=== PATIENT | female | born 1985 | race Caucasian/White ===

== ENCOUNTER 2023-09-25 12:58 | Emergency (ER) | payer BC, SELFPAY ==
[2023-09-25] VITALS (15 sets, daily range): BP systolic 113–145; BP diastolic 77–93; PULSE 75–131; RESP 11–26; TEMP 36.8; O2SAT 94–100; BMI 41.9
--- NOTE | 2023-09-25 13:30 | XR_ITS ---
The [address] [address] Patient Name: DOMI LOU MRN: [id number] date: 1985 Sex: F Assigned Patient Location: ER Current Patient Location: ER Accession/Order Number: [id number] Exam Date: 09/25/2023 13:35 Report Date: 09/25/2023 13:53 At the request of: CHAD CONDE Procedure: XR chest 1V EXAM: XR chest 1V at 1335 hours HISTORY: pain and shortness of breath with sudden onset today COMPARISON: None. TECHNIQUE: AP upright portable chest x-ray FINDINGS: The heart is not enlarged and the vasculature is not distended. No acute infiltrate, effusion or pneumothorax is identified. The osseous structures are grossly intact. XR/XR chest 1V IMPRESSION: No acute infiltrate or evidence of cardiac decompensation. Direct comparison with a previous study may be helpful in determining the chronicity of these findings. Electronically authenticated by: ALETHEA LAM Date: 09/25/2023 13:53
--- NOTE | 2023-09-25 13:32 | ECG_ITS ---
The [facility] Test Date: 2023-09-25 Pat Name: DOMI LOU Department: Room: - Gender: Female [employer]: : 1985 Requested By: [id number] Order Number: [id number] Reading MD: RITU LOPEZ Measurements Intervals Crocker Rate: 102 P: 72 MN: 170 QRS: 78 QRSD: 90 T: -44 QT: 280 QTc: 338 Interpretive Statements 1120 Sinus tachycardia [address] depression 4364 Twave abnormality, possible anterolateral ischemia 4664 Twave abnormality, possible inferior ischemia 8305 Short QTc interval 9150 abnormal ECG No previous ECG available for comparison Electronically Signed On 09-30-2023 6:42:22 EST by RITU LOPEZ
[2023-09-25 14:02] LABS: Alanine Aminotransferase 21 U/L (14-59); Albumin Globulin Ratio 0.8; Albumin Level 3.7 g/dL (3.4-5.0); Alkaline Phosphatase 69 U/L (46-116); Anion Gap 12.4; Aspartate Amino Transferase 16 U/L (15-37); BUN Creatinine Ratio 10.5; Bilirubin Total 0.3 mg/dL (0.2-1.0); Calcium 10.2 mg/dL (8.5-10.1); Carbon Dioxide 23.8 mmol/L (21.0-32.0); Chloride 101 mmol/L (98-107); Estimated GFR (African America >60 (>=60); Estimated GFR (Non-African Ame >60 (>=60); Globulin 4.5 g/dL; Glucose 138 mg/dL (74-106); Potassium 3.2 mmol/L (3.5-5.1); Sodium 134 mmol/L (136-145); Total Protein 8.2 g/dL (6.4-8.2); Troponin I High Sensitivity 50.8 pg/mL (4.0-51.3)
[2023-09-25 14:08] LABS: D Dimer <0.19 mg/L FEU (<=0.59)
[2023-09-25 14:18] LABS: Basophils Percent Auto 0.3 % (0.2-2.0); Eosinophils Percent Auto 0.4 % (0.9-7.0); Hematocrit 43.8 % (36.0-48.0); Hemoglobin 14.6 g/dL (12.0-16.0); Immature Granulocytes Abs Auto 0.04 10^3/uL (0.00-0.03); Immature Granulocytes Pct Auto 0.4 % (0.0-0.5); Lymphocytes Absolute Auto 2.9 10^3/uL (1.2-3.8); Lymphocytes Percent Auto 27.5 % (20.5-60.0); Mean Corpuscular HGB Conc 33.3 g/dL (29.9-35.2); Mean Corpuscular Hemoglobin 30.5 pg (26.7-34.0); Mean Corpuscular Volume 91.6 fL (81.0-99.0); Mean Platelet Volume 11.6 fL (9.5-13.5); Monocytes Absolute Auto 0.7 10^3/uL (0.3-0.8); Monocytes Percent Auto 6.3 % (1.7-12.0); Neutrophils Percent Auto 65.1 % (43.0-75.0); Platelet Count 257 10^3/uL (150-450); Red Blood Count 4.78 10^6/uL (4.20-5.40); Red Cell Distribution Width 13.1 % (11.0-15.0); White Blood Count 10.7 10^3/uL (4.0-11.0)
[2023-09-25 15:46] LABS: Troponin I High Sensitivity 51.9 pg/mL (4.0-51.3)
--- NOTE | 2023-09-25 15:52 | ED_ITS ---
HPI - Chest Pain General Chief Complaint: Chest Pain Stated Complaint: CHEST PAIN Time Seen by Provider: 09/25/23 13:30 Source: patient Mode of arrival: walk-in Limitations: no limitations History of Present Illness HPI narrative: patient here complaining of chest pain. It's in the upper right pectoral area. It was self-limited and lasted a short time. It did not radiate to the neck jaw or arms. There is no tearing or ripping sensation. She did not have nausea vomiting or diaphoresis. She's not had previous cardiovascular events. Her risk profile is negative for cholesterol problems diabetes illicit drug use previous coronary disease family history is all negative. She had a wellness physical done recently and it was normal. She is not had Covid or any influenza viruses recently. She does not have any ongoing discomfort at this time. She did not describe it as a heartburn or indigestion type symptoms. She's not had any swelling of her legs she's not had previous deep vein thrombosis or pulmonary embolism, frankly she is quite healthy. She did state that when she was very very young the physician told her she might have mitral valve prolapse the subsequent examinations have refuted that and she's been doing very well with no palpitations no dyspnea with exertion and no easy fatigability. Related Data Home Medications Medication Instructions Recorded Confirmed No Known Home Medications 09/25/23 09/25/23 Allergies Allergy/AdvReac Type Severity Reaction Status Date / Time No Known Drug Allergies Allergy Verified 09/25/23 13:05 [facility] Social History Smoking status: Never smoker Exam Narrative Exam Narrative: well-hydrated well-nourished female appears in no distress her vital signs are stable pulse oximetry respirator rate and pulse are normal. Twelve-lead EKG was done as noted below. Overall examination she does not have any scleral icterus or evidence of anemia. No facial swelling or upper airways normal. She has no carotid bruit. Her examination lungs are clear with no wheezes rales or rhonchi. Heart sounds are normal in all listening posts with no clicks rubs or gallops or murmur.she has no abdominal pain. Her legs do not show evidence for colitis edema swelling or perfusion ischemia. neurological examination is normal with no neurological complaints. Constitutional Vital Signs, click to edit/add: Last Vital Signs Temp 98.3 F 09/25/23 13:05 Pulse 80 09/25/23 14:50 Resp 13 09/25/23 14:31 BP 113/79 09/25/23 14:45 Pulse Ox 97 09/25/23 14:50 Course Vital Signs Vital signs: Vital Signs Temperature 98.3 F 09/25/23 13:05 Pulse Rate 131 H 09/25/23 13:05 Respiratory Rate 20 09/25/23 13:05 Blood Pressure 145/93 H 09/25/23 13:05 Pulse Oximetry 98 09/25/23 13:05 Temperature 98.3 F 09/25/23 13:05 Pulse Rate 80 09/25/23 14:50 Respiratory Rate 13 09/25/23 14:31 Blood Pressure 113/79 09/25/23 14:45 Pulse Oximetry 97 09/25/23 14:50 MDM - Chest Pain MDM Narrative Medical decision making narrative: patient's EKG shows T-wave abnormality over the inferior lateral leads. She has not had an EKG previously so we have no baseline to compare to. She does not have any ST segment elevation or arrhythmia. Her troponin is borderline upper normal so was repeated and two hours at one up fractionally. With her clinical history very unlikely representing of any type of underlying coronary disease problem and with her troponin essentially within the normal parameters I believe she can follow-up with a primary care doctor. 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 If her primary care Doctor cannot arrange that she can call me on Saturday and I will help facilitate that. Lab Data Labs: Lab Results 09/25/23 09/25/23 Range/Units 13:16 15:11 WBC 10.7 (4.0-11.0) 10^3/uL RBC 4.78 (4.20-5.40) 10^6/uL Hgb 14.6 (12.0-16.0) g/dL Hct 43.8 (36.0-48.0) % MCV 91.6 (81.0-99.0) fL MCH 30.5 (26.7-34.0) pg MCHC 33.3 (29.9-35.2) g/dL RDW 13.1 (11.0-15.0) % Plt Count 257 (150-450) 10^3/uL MPV 11.6 (9.5-13.5) fL Neut % (Auto) 65.1 (43.0-75.0) % Lymph % (Auto) 27.5 (20.5-60.0) % [place]wood % (Auto) 6.3 (1.7-12.0) % Eos % (Auto) 0.4 L (0.9-7.0) % Baso % (Auto) 0.3 (0.2-2.0) % Neut # (Auto) 7.0 H (1.4-6.5) 10^3/uL Lymph # (Auto) 2.9 (1.2-3.8) 10^3/uL Redwood # (Auto) 0.7 (0.3-0.8) 10^3/uL Eos # (Auto) 0.0 (0.0-0.7) 10^3/uL Baso # (Auto) 0.0 (0.0-0.1) 10^3/uL Abs Immat Gran (auto) 0.04 H (0.00-0.03) 10^3/uL Imm/Tot Granulo (auto) 0.4 (0.0-0.5) % D-Dimer <0.19 (<=0.59) mg/L FEU Sodium 134 L (136-145) mmol/L Potassium 3.2 L (3.5-5.1) mmol/L Chloride 101 (98-107) mmol/L Carbon Dioxide 23.8 (21.0-32.0) mmol/L Anion Gap 12.4 BUN 10.0 (7.0-18.0) mg/dL Creatinine 0.95 (0.55-1.02) mg/dL Est GFR ( Amer) >60 (>=60) Est GFR (Non-Af Amer) >60 (>=60) BUN/Creatinine Ratio 10.5 Glucose 138 H (74-106) mg/dL Calcium 10.2 H (8.5-10.1) mg/dL Total Bilirubin 0.3 (0.2-1.0) mg/dL AST 16 (15-37) U/L ALT 21 (14-59) U/L Alkaline Phosphatase 69 (46-116) U/L Troponin I High Sens 50.8 51.9 H* (4.0-51.3) pg/mL Total Protein 8.2 (6.4-8.2) g/dL Albumin 3.7 (3.4-5.0) g/dL Globulin 4.5 g/dL Albumin/Globulin Ratio 0.8 Heart Score History: Slightly/Non-Suspicious ECG: Sign. ST Depression Age: <45 years Risk Factors: No Risk Factors Troponin: <3X Normal Limit Total Heart Score Recommendations & Risks:: 3 Discharge Plan Discharge Chief Complaint: Chest Pain Clinical Impression: Atypical chest pain Patient Disposition: Home, Self-Care Time of Disposition Decision: 15:57 Prescriptions / Home Meds: No Action No Known Home Medications Additional Instructions: take a copy of her EKG and lab tests. Consider cardiology referral from your primary care practitioner or call me Saturday Stand Alone Forms: Portal Instructions Referrals: REY PERDOMO [Primary Care Provider] - 1 week
== END 2023-09-25 16:15 | disposition home or self-care (01) ==
PROVIDERS: Emergency Provider Emergency Medicine Emergency Medical Services; PCP Family Medicine
DX: R07.89 Other chest pain (principal)
CPT/HCPCS: 36415; 71045; 80053; 84484; 85025; 85378; 93005; 99285

== ENCOUNTER 2024-05-09 07:23 | Outpatient (OUT) | payer BC, SELFPAY ==
--- OUTSIDE RECORDS SUMMARY | 2024-05-09 07:27 | XMS_ITS | CCD ---
Author Organization [facility] Care Team Providers Care Director Wholesale Name Role Phone IRAJ WHITE Unavailable Unavail able IRAJ WHITE Unavailable Unavail able KEYA BLACKMON Unavailable Unavailable LOBITO DODGE Unavailable Unavailabl e VERKEYA CARNEY Unavailable Unavailable IRAJ WHITE Unavailable Unavail able IRAJ WHITE Unavailable Unavail able KEYA BLACKMON Unavailable Unavailable LOBITO DODGE Unavailable Unavailabl e VERKEYA CARNEY Unavailable Unavailable Keya Blackmon Primary Care Provider Keya Blackmon MD Primary Care Provider KEYA BLACKMON Referring Unavailable KEYA BLACKMON Primary Care Unavailable Joyce Stockton Unavailable Hoda Maynard Unavailable [phone] Medications Current Medications Medication Drug Class(es) Dates Sig (Normalized) Sig (Original) cephalexin 500 mg oral tablet (2 sources) Cephalosporin Antibacterial Start: 04-03-2023 take 1 tablet by mouth every eight hours Cephalexin 500 MG 1 tablet Orally Three times a day for 10 days Mar, Active Multi (1 source) Start: 05-04-2024 Multi Active PO May 04, 2024 12:00am Multi Complete (4 sources) Multi Complete Active Multiple Vitamins-Minerals (THERAPEUTIC MULTIVITAMIN-MINERALS) tablet (2 sources) take 1 tablet by mouth once daily Multiple Vitamins-Minerals (THERAPEUTIC MULTIVITAMIN-MINERALS) tablet Take 1 tablet by mouth daily 0 Active predniSONE 20 mg oral tablet (3 sources) Start : 03-27 take 1 tablet by mouth three times daily, then take 1 tablet by mouth twice daily, then take 1 tablet by mouth once daily, then take 0.5 tablet by mouth once daily predniSONE 20 MG 1 tablet Orally as directed for 8 days 1 tablet 3 times daily x2 days then 1 tablet twice daily x2 days then 1 tablet daily x2 days then 1/2 tablet daily x2 days Mar, Active Respiratory Therapy Supplies (NEBULIZER/TUBING/MOUTHPIEC E) KIT (1 source) Start : 11-17 Respiratory Therapy Supplies (NEBULIZER/TUBING/MOUTHPIEC E) KIT Indications: Shortness of breath , Wheezing , Cough in adult 1 kit by Does not apply route daily as needed (cough, wheezing) 1 kit 0 11/17/2020 Active triamcinolone acetonide 1 mg/ml topical cream (6 sources) Corticosteroid Start : 04-03 Triamcinolone Acetonide 0.1 % 1 application Externally Twice a day for 10 days Mar, Active Start: 03-27-2023 Kenalog-40 Mar, 40 mg Start: 03-27-2023 Completed/Discontinued Medications Medication Drug Class(es) Dates Sig (Normalized) Sig (Original) [id number] 200 actuat albuterol 0.09 mg/actuat metered dose inhaler (2 sources) beta2-Adrenergic Agonist Start: 05-29-2021 Start: 11-17-2020 albuterol (PRO VENTIL) (5 MG/ML) 0.5% nebulizer solution Indications: Shortness of breath , Wheezing , Cough in adult Take 1 mL by nebulization 4 times daily as needed for Wheezing 120 each 3 11/17/2020 Active Problems Active Problems Problem Classification Problem Date Documented Date Episodic/Chronic Allergic reactions (2 sources) Allergic contact dermatitis due to plants, except food Episodic Conditions associated with dizziness or vertigo (1 source) Dizziness and giddiness Episodic Heart valve disorders (2 sources) Mitral valve prolapse; Translations: [Nonrheumatic mitral (valve) prolapse] Onset: 04-08-2013 06-03-2017 Chronic Hypertension complicating ; childbirth and the puerperium (1 source) Hypertension complicating , childbirth and the puerperium; Translations: [Gestational hypertension] 06-11-2017 Chronic Menstrual disorders (1 source) Amenorrhea, unspecified; Translations: [Amenorrhea, unspecified] Onset: 09-20-2017 Chronic Nonspecific chest pain (1 source) Chest pain, unspecified Episodic Other screening for suspected conditions (not mental disorders or infectious disease) (9 sources) Abnormal electrocardiogram [ECG] [EKG]; Translations: [Other specified abnormal findings of blood chemistry] Episodic Skin and subcutaneous tissue infections (2 sources) Cellulitis of right upper limb; Translations: [Cellulitis of left upper limb] Episodic Past or Other Problems Problem Classification Problem Date Documented Da te Episodic/Chronic Early or threatened labor (2 sources) False labor, unspecified; Translations: [False labor, unspecified] Onset: 04-16-2017 Episodic Hypertension complicating ; childbirth and the puerperium (3 sources) Gestational [-induced] hypertension without significant proteinuria, third trimester; Translations: [-induced hypertension] Onset: 06-10-2017 Resolved: 11-17-2020 11-17-2020 Episodic Normal and/or delivery (3 sources) Encounter for supervision of normal first , third trimester; Translations: [Normal ] Onset: 05-28-2017 Resolved: 11-17-2020 06-11-2017 Episodic Results Test Name Value Interpretation Reference Range Facility Lipid Profileon 11-02-2022 Cholesterol [Mass/Vol] 213 mg/dL High <200 [facility] Comment on above: Result Comment: Cholesterol Guidelines: <200 Desirable 200-240 Borderline >240 Undesirable Performed By: #### Delgado FAST, GLUF #### [facility] [address] [place], [place] [id number] Wall Worker: Tesfaye Torres MD #### LIPR #### [facility] [employer] [address] [place] [address] [id number] Wall Worker: Serafin Collins MD Cholesterol in HDL [Mass/Vol] 73 mg/dL Normal >40 [facility] Comment on above: Result Comment: HDL Guidelines: <40 Undesirable 40-59 Borderline >59 Desirable Performed By: #### Delgado FAST, GLUF #### [facility] [address] [place], [place] [id number] Wall Worker: Tesfaye Torres MD #### LIPR #### [facility] [employer] [address] [place] [address] [id number] Wall Worker: Serafin Collins MD Cholesterol in LDL [Mass/Vol] 128 mg/dL Normal 0-130 [facility] Comment on above: Result Comment: LDL Guidelines: <100 Desirable 100-129 Near to/above Desirable 130-159 Borderline >159 Undesirable Direct (measured) LDL and calculated LDL are not interchangeable tests. Performed By: #### Z FAST, GLUF #### [facility] [address] [place], [place] [id number] Wall Worker: Tesfaye Torres MD #### LIPR #### [address] [address] [place], [place] [id number] Wall Worker: Serafin Collins MD Cholesterol.total/Ch olesterol in HDL [Mass ratio] 2.9 {ratio} Normal <5 [facility] Comment on above: Performed By: #### Delgado FAST, GLUF #### [facility] [address] [place], [place] [id number] Wall Worker: Tesfaye Torres MD #### LIPR #### [address] [place], [place] [id number] Wall Worker: Serafin Collins MD Triglyceride [Mass/Vol] 60 mg/dL Normal <150 [facility] Comment on above: Result Comment: Triglyceride Guidelines: <150 Desirable 150-199 Borderline 200-499 High >499 Very high Based on AHA Guidelines for fasting triglyceride, June 2012. Performed By: #### Delgado FAST, GLUF #### [facility] [address] [place], [place] [id number] Wall Worker: Tesfaye Torres MD #### LIPR #### [facility] [address] [place], [place] [id number] Wall Worker: Serafin Collins MD Glucose, Fastingon 3 Glucose [Mass/Vol] 97 mg/dL Normal 70-99 [facility] Comment on above: Performed By: #### Z FAST, GLUF #### [facility] [address] [place] [address] Wall Worker: Tesfaye Torres MD #### LIPR #### [employer] [address] [place] [address] Wall Worker: Serafin Collins MD Glucose [Mass/Vol] 97 mg/dL 70 - 99 mg/dL [facility] Lipid Panelon 11-01-2022 Cholesterol [Mass/Vol] 213 mg/dL High NINF - 200 mg/dL [facility] Comment on above: Cholesterol Guidelines: <200 Desirable 200-240 Borderline >240 Undesirable Cholesterol in HDL [Mass/Vol] 73 mg/dL 40 - PINF mg/dL [facility] Comment on above: HDL Guidelines: <40 Undesirable 40-59 Borderline >59 Desirable Cholesterol in LDL [Mass/Vol] 128 mg/dL 0 - 130 mg/dL [facility] Comment on above: LDL Guidelines: <100 Desirable 100-129 Near to/above Desirable 130-159 Borderline >159 Undesirable Direct (measured) LDL and calculated LDL are not interchangeable tests. Cholesterol.total/Ch olesterol in HDL [Mass ratio] 2.9 {ratio} NINF - 5 [facility] Interpretation and review of laboratory results Abnormal [facility] Triglyceride [Mass/Vol] 60 mg/dL NINF - 150 mg/dL [facility] Comment on above: Triglyceride Guidelines: <150 Desirable 150-199 Borderline 200-499 High >499 Very high Based on AHA Guidelines for fasting triglyceride, June 2012. [facility] Patient Fasting?on 3 Patient Fasting? YES [facility] Patient fasting?on 3 Patient fasting? 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 [place], [place] [address] Fax: SURGICAL PATHOLOGY CONSULTATIONPatient Name: [facility] Rec: [id number] Number: [id number]: 06/11/2017Received: 06/11/2017Reported: 06/13/2017 13:37-- Diagnosis --PLACENTA, THIRD TRIMESTER: - NO HISTOLOGIC ABNORMALITY.Demi Collins M.D.Electronically Signed Out [facility]/06/13/2017Clinical InformationOperative Findings: PLACENTASource of Specimen1: PLACENTA (PER CONTAINER)Gross Description YUMIKO SERRANO, PLACENTA Placenta with attached membranes andumbilical cord.UMBILICAL CORD Length: 30.0 cm Diameter: 1.0 cmTrue knots: NoNumber of vessels: 3Spiraling: NormalInsertion into surface: Paracentral, 5.2 cm from the nearestdisc marginMEMBRANESColor: [place]-osorio Meconium staining: No SURFACEColor: Saunders-blue and well vascularizedSubchorionic fibrin: Patchy and marginal (less than 5% of thedisc) MATERNAL SURFACECotyledons: -All present and intact: Yes-Focal lesions: Osorio, wedge-shaped measuring up to 1.5 cm involvingless than 10% of the otherwise unremarkable red-brown parenchyma.Placental size: 19.0 x 16.0 x 3.0 cmShape: CircularWeight: 407 gramsNumber of cassettes: 3cs tmMicroscopic DescriptionUmbilical cord: No abnormalityChorionic plate: No neutrophil infiltrateVillous maturation: AppropriateNucleated erythrocytes in Villous capillaries: Not increasedOther: Few microcalcifications; intervillous fibrindeposition Normal [facility] Urinalysis w/ Microon 2016 ----- Normal [facility] Comment on above: Performed By: #### U AMI ####[address] [place] [address] Acetaminophen mass conc TRACE Abnormal NEG [facility] Comment on above: Performed By: #### U AMIC ####[address] [place] [address] Bilirubin (direct) Negative Normal NEG [facility] Comment on above: Performed By: #### U AMIC ####[address] [place] [address] Hemoglobin mass conc (Bld) TRACE Abnormal NEG [facility] Comment on above: Performed By: #### U AMIC ####[address] [place] [address] Mucus Strands TRACE Abnormal NONE [facility] Comment on above: Result Comment: Perf ormed at [address] [place] [address] Performed By: #### U AMIC ####[address] [place] [address] Nitrite,Ur Negative Normal NEG [facility] Comment on above: Performed By: #### U AMIC ####[address] [place] [address] Turbidity CLEAR Normal CLEAR [facility] Comment on above: Performed By: #### U AMIC ####[address] [place] [address] Urine WBC's None Normal 0-5 [facility] Comment on above: Performed By: #### U AMIC ####[address] [place] [address] Urine, color YELLOW Normal YEL [facility] Comment on above: Performed By: #### U AMIC ####[address] [place] [address] Urine, epithelial cells in sediment 0 TO 2 Normal 0-25 [facility] Comment on above: Performed By: #### U AMIC ####[address] [place] [address] Urine, erythrocytes 0 TO 2 Normal 0-2 [facility] Comment on above: Performed By: #### U AMIC ####[address] [place] [address] Urine, glucose presence Negative Normal NEG [facility] Comment on above: Performed By: #### U AMIC ####[address] [place] [address] Urine, leukocyte esterase presence Negative Normal NEG [facility] Comment on above: Performed By: #### U AMIC ####[address] [place] [address] Urine, pH 6.0 [pH] Normal 5.0-9.0 [facility] Comment on above: Performed By: #### U AMIC ####[address] [place] [address] Urine, protein presence Negative Normal NEG [facility] Comment on above: Performed By: #### U AMIC ####[address] [place] [address] Urine, specific gravity 1.010 Normal 1.010-1.020 [facility] Comment on above: Performed By: #### U AMIC ####[address] [place] [address] Urobilinogen,Ur Normal Normal NORM [facility] Comment on above: Performed By: #### U AMIC ####[address] [place] [address] Comment NOT REPORTED Normal [facility] Comment on above: Performed By: #### U AMIC ####[address] [place] [address] Epithelial, Renal NOT REPORTED Normal 0 [facility] Comment on above: Performed By: #### U AMIC ####[address] [place] [address] Other Observations NOT REPORTED Normal NREQ [facility] Comment on above: Performed By: #### U AMIC ####[address] [place] [address] Trichomonas NOT REPORTED Normal NONE [facility] Comment on above: Performed By: #### U AMIC ####[address] [place] [address] Urine, amorphous sediment presence in sediment NOT REPORTED Normal NONE [facility] Comment on above: Performed By: #### U AMIC ####[address] [place] [address] Urine, bacteria in sediment NOT REPORTED Normal NONE [facility] Comment on above: Performed By: #### U AMIC ####[address] [place] [address] Urine, casts in sediment NOT REPORTED Normal [facility] Comment on above: Performed By: #### U AMIC ####[address] [place] [address] Urine, crystals in sediment NOT REPORTED Normal NONE [facility] Comment on above: Performed By: #### U AMIC ####[address] [place] [address] Urine, yeast presence in sediment NOT REPORTED Normal NONE [facility] Comment on above: Performed By: #### U AMIC ####[address] [place] [address] CBC with Diffon 06-10-2017 Abs. Basophil 0.00 k/uL Normal 0.0-0.2 [facility] Comment on above: Result Comment: Perf ormed at [address] [place] [address] Performed By: #### C DP ####[address] [place] [address] Abs.Neutrophil (Seg) 11.80 k/uL High 1.8-7.7 [facility] Comment on above: Performed By: #### C DP ####[address] [place] [address] Basophils/100 WBC Auto (Bld) 0 % Normal [facility] Comment on above: Performed By: #### C DP ####[address] [place] [address] Eosinophils 0.10 10*3/uL Normal 0.0-0.4 [facility] Comment on above: Performed By: #### C DP ####[address] [place] [address] Eosinophils/100 leukocytes 0 % Normal [facility] Comment on above: Performed By: #### C DP ####[address] [place] [address] Erythrocyte distribution width Auto Ratio (RBC) 13.3 % Normal 12.1-15.2 [facility] Comment on above: Performed By: #### C DP ####[address] [place] [address] Erythrocytes (RBC) 4.51 10*6/uL Normal 4.0-5.2 [facility] Comment on above: Performed By: #### C DP ####[address] [place] [address] Hematocrit (HCT) 40.7 % Normal 36-46 [facility] Comment on above: Performed By: #### C DP ####[address] [place] [address] Hemoglobin mass conc (Bld) 13.6 g/dL Normal 12.0-16.0 [facility] Comment on above: Performed By: #### C DP ####[address] [place] [address] Lymphocytes 2.20 10*3/uL Normal 1.0-4.8 [facility] Comment on above: Performed By: #### C DP ####[address] , [facility] Lymphocytes/100 leukocytes 15 % Normal [facility] Comment on above: Performed By: #### C DP ####[address] , [place] [address] MCH 30.2 pg Normal 26-34 [facility] Comment on above: Performed By: #### C DP ####[address] , [facility] MCHC mass conc (RBC) 33.4 g/dL Normal 31-37 [facility] Comment on above: Performed By: #### C DP ####[address] , [facility] MCV 90.2 fL Normal 80-100 [facility] Comment on above: Performed By: #### C DP ####[address] [place] [address] Monocytes 0.90 10*3/uL High 0.2-0.8 [facility] Comment on above: Performed By: #### C DP ####[address] , [facility] Monocytes/100 leukocytes 6 % Normal [facility] Comment on above: Performed By: #### C DP ####[address] , [facility] Neutrophil (Seg) 79 % Normal [facility] Comment on above: Performed By: #### C DP ####[address] , [facility] Platelet mean volume (PMV) 10.7 fL Normal 6.0-12.0 [facility] Comment on above: Performed By: #### C DP ####[address] [place] [address] Platelets 168 10*3/uL Normal 140-450 [facility] Comment on above: Performed By: #### C DP ####[address] [place] [address] WBC (Leukocytes) 15.0 10*3/uL High 3.5-11.0 [facility] Comment on above: Performed By: #### C DP ####[address] [place] [address] Auto Diff Performed NOT REPORTED Normal [facility] Comment on above: Performed By: #### C DP ####[address] [place] [address] Erythrocyte morphology NOT REPORTED Normal [facility] Comment on above: Performed By: #### C DP ####[address] [place] [address] Platelets NOT REPORTED Normal [facility] Comment on above: Performed By: #### C DP ####[address] [place] [address] WBC Morphology NOT REPORTED Normal [facility] Comment on above: Performed By: #### C DP ####[address] [place] [address] Comp Metabolic Profon 2016 Alanine aminotransferase (ALT) 16 U/L Normal 5-33 [facility] Comment on above: Performed By: #### U RI, CP, LD, REJEC ####[address] [place] [address] Aspartate aminotransferase (AST) 27 U/L Normal <32 [facility] Comment on above: Performed By: #### U RI, CP, LD, REJEC ####[address] [place] [address] Bilirubin Ql (U) <0.10 Low 0.3-1.2 [facility] Comment on above: Performed By: #### U RI, CP, LD, REJEC ####[address] [place] [address] Potassium molar conc 4.2 mmol/L Normal 3.7-5.3 [facility] Comment on above: Performed By: #### U RI, CP, LD, REJEC ####[address] , [facility] (cont.) Normal [facility] Comment on above: Result Comment: Aver age GFR for 30-39 years old: 107 mL/min/1.73sq mChronic Kidney Disease: <60 mL/min/1.73sq mKidney failure: <15 mL/min/1.73sq meGFR calculated using average adult body mass. Additional eGFR calculator available at:http://www.[employer]/multiple_crcl_2012.htm Performed By: #### U RI, CP, LD, REJEC ####[address] [place] [address] Albumin 3.3 g/dL Low 3.5-5.2 [facility] Comment on above: Performed By: #### U RI, CP, LD, REJEC ####[address] [place] [address] Albumin/Globulin Ratio 0.9 {ratio} Low 1.0-2.5 [facility] Comment on above: Performed By: #### U RI, CP, LD, REJEC ####[address] [place] [address] Alkaline Phos 89 U/L Normal 35-104 [facility] Comment on above: Performed By: #### U RI, CP, LD, REJEC ####[address] [place] [address] Anion gap 14 mmol/L Normal 9-17 [facility] Comment on above: Performed By: #### U RI, CP, LD, REJEC ####[address] [place] [address] BUN/CRE Ratio 15 Normal 9-20 [facility] Comment on above: Performed By: #### U RI, CP, LD, REJEC ####[address] [place] [address] Calcium 9.6 mg/dL Normal 8.6-10.4 [facility] Comment on above: Performed By: #### U RI, CP, LD, REJEC ####[address] [place] [address] Chloride 101 mmol/L Normal 98-107 [facility] Comment on above: Performed By: #### U RI, CP, LD, REJEC ####[address] [place] [address] CO2 19 mmol/L Low 20-31 [facility] Comment on above: Performed By: #### U RI, CP, LD, REJEC ####[address] [place] [address] Creatinine 0.68 mg/dL Normal 0.50-0.90 [facility] Comment on above: Performed By: #### U RI, CP, LD, REJEC ####[address] [place] [address] eGFR (non-black) mL/min/{1.73_m2} Normal >60 [facility] Comment on above: Performed By: #### U RI, CP, LD, REJEC ####[address] [place] [address] Glucose mass conc 85 mg/dL Normal 70-99 [facility] Comment on above: Performed By: #### U RI, CP, LD, REJEC ####[address] [place] [address] Protein 6.9 g/dL Normal 6.4-8.3 [facility] Comment on above: Performed By: #### U RI, CP, LD, REJEC ####[address] [place] [address] Sodium 134 mmol/L Low 135-144 [facility] Comment on above: Performed By: #### U RI, CP, LD, REJEC ####[address] [place] [address] Staging: Normal [facility] Comment on above: Result Comment: Stag e 1: Some kidney damage normal GFRStage 2: Mild kidney damage GFR 60-89Stage 3: Moderate kidney damage GFR 30-59Stage 4: Severe kidney damage GFR 15-29Stage 5: Severe kidney damage GFR <15ESRD - chronic treatment by dialysis or transplantPerformed at [address] [place] [address] Performed By: #### U RI, CP, LD, REJEC ####[address] [place] [address] Urea nitrogen 10 mg/dL Normal 6-20 [facility] Comment on above: Performed By: #### U RI, CP, LD, REJEC ####[address] [place] [address] Drug Scr, Abuse, Uron 2016 Amphetamine(s),Ur Negative Normal NEG [facility] Comment on above: Performed By: #### D AU ####[address] [place] [address] Barbiturate(s),Ur Negative Normal NEG [facility] Comment on above: Performed By: #### D AU ####[address] [place] [address] Base excess Negative Normal NEG [facility] Comment on above: Performed By: #### D AU ####[address] [place] [address] Benzodiazepine(s) Negative Normal NEG [facility] Comment on above: Performed By: #### D AU ####[address] [place] [address] Buprenorphrine, Ur Negative Normal NEG [facility] Comment on above: Result Comment: Perf ormed at [address] [place] [address] Performed By: #### D AU ####[address] [place] [address] Cannabinoid(s),Ur Negative Normal NEG [facility] Comment on above: Performed By: #### D AU ####[address] [place] [address] Methamphetamine, Ur Negative Normal NEG [facility] Comment on above: Performed By: #### D AU ####[address] [place] [address] Opiate(s), Ur Negative Normal NEG [facility] Comment on above: Performed By: #### D AU ####[address] [place] [address] Oxycodone, Urine Negative Normal NEG [facility] Comment on above: Performed By: #### D AU ####[address] [place] [address] Phencyclidine, Ur Negative Normal NEG [facility] Comment on above: Performed By: #### D AU ####[address] [place] [address] Propoxyphene,Urine Negative Normal NEG [facility] Comment on above: Performed By: #### D AU ####[address] [place] [address] Urine, methadone presence Negative Normal NEG [facility] Comment on above: Performed By: #### D AU ####[address] [place] [address] Urine, tricyclic antidepressants Negative Normal NEG [facility] Comment on above: Result Comment: Drug screen results are to be used for medical purposes only. All positive results are unconfirmed. Testing for employment or legal uses should be sent to a reference laboratory for confirmation. 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 [address] Performed By: #### U RI, CP, LD, REJEC ####[address] [place] [address] Specimen Rejectionon 017 Reason for rejection CLOTTED Normal [facility] Comment on above: Result Comment: Perf ormed at [address] [place] [address] Performed By: #### U RI, CP, LD, REJEC ####[address] [place] [address] Source of sample BLOOD Normal [facility] Comment on above: Performed By: #### U RI, CP, LD, REJEC ####[address] [place] [address] Test ordered CDP Normal [facility] Comment on above: Performed By: #### U RI, CP, LD, REJEC ####[address] [place] [address] ----- NOT REPORTED Normal [facility] Comment on above: Performed By: #### U RI, CP, LD, REJEC ####[address] [place] [address] Uric Acidon 06-10-2017 Urate 5.5 mg/dL Normal 2.4-5.7 [facility] Comment on above: Result Comment: Perf ormed at [address] [place] [address] Performed By: #### U RI, CP, LD, REJEC ####[address] [place] [address] Rule Out Grp.B Strepon 05-31 Rule Out Grp.B Strep Specimen Descriptio n .VAGINA Performed at [address] [place] [address] Special Requests NOT REPORTEDCulture NEGATIVE FOR GROUP B STREPTOCOCCI Performed at [address] [id number] ([phone] Report Status FINAL 05/31/2017 Normal [facility] Comment on above: Performed By: #### R OGBS ####[address] [phone] [place] [address] Vaginitis DNA Probeon 2016 Vaginitis DNA Probe Specimen Description .VAGINA Performed at [address] [place] [address] Special Requests NOT REPORTEDDirect Exam NEGATIVE for Kaylene sp. NEGATIVE for Gardnerella vaginalis NEGATIVE for Trichomonas vaginalis Method of testing is a DNA probe intended for detection and identification of Kaylene species, Gardnerella vaginalis, and Trichomonas vaginalis nucleic acid in vaginal fluid specimens from patients with symptoms of vaginitis/vaginosis. Performed at [address] [id number] ([phone] Report Status FINAL 05/28/2017 Normal [facility] Comment on above: Performed By: #### V AGDNA ####[address] [phone] [place] [address] Vital Signs Date Time Vital Sign Value Performing Clinician Facility 05-04-2024 15:28-0400 Body height 162.56 cm [facility] 05-04-2024 15:28-0400 Body mass index (BMI) [Ratio] 43.7 kg/m2 [facility] 05-04-2024 15:28-0400 Body weight 115.66 kg [facility] 05-04-2024 15:28-0400 Diastolic blood pressure 78 mm[Hg] [facility] 05-04-2024 15:28-0400 Heart rate 100 /min [facility] 05-04-2024 15:28-0400 SaO2% (BldA) [Mass fraction] 99 % [facility] 05-04-2024 15:28-0400 Systolic blood pressure 122 mm[Hg] [facility] 09-30-2023 09:00-0500 Body height 165.1 cm Hoda Maynard Other [facility] Other 09-30-2023 09:00-0500 Body mass index (BMI) [Ratio] 43.76 kg/m2 Hoda Maynard Other [facility] Other 09-30-2023 09:00-0500 Body weight 119.3 kg Hoda Maynard Other [facility] Other 09-30-2023 09:00-0500 Diastolic blood pressure 72 mm[Hg] Hoda Barbosaelliottpedritojason Other [facility] Other 09-30-2023 09:00-0500 SaO2% (BldA) [Mass fraction] 100 % Hoda Aleyda Other [facility] Other 09-30-2023 09:00-0500 Systolic blood pressure 140 mm[Hg] Hoda Aleyda Other [facility] Other 04-03-2023 08:30-0400 Body height 165.1 cm Hoda Aleyda Other [facility] Other 04-03-2023 08:30-0400 Body mass index (BMI) [Ratio] 42.76 kg/m2 Hoda Aleyda Other [facility] Other 04-03-2023 08:30-0400 Body weight 116.58 kg Hoda Aleyda Other [facility] Other 04-03-2023 08:30-0400 Diastolic blood pressure 70 mm[Hg] Hoda Aleyda Other [facility] Other 04-03-2023 08:30-0400 Systolic blood pressure 138 mm[Hg] Hoda Aleyda Other [facility] Other 03-27-2023 14:55-0400 Body height 165.1 cm Joyce Stockton Other [facility] Other 03-27-2023 14:55-0400 Body mass index (BMI) [Ratio] 42.46 kg/m2 Joyce Stockton Other [facility] Other 03-27-2023 14:55-0400 Body temperature 98.2 [degF] Joyce Stockton Other [facility] Other 03-27-2023 14:55-0400 Body weight 115.76 kg Joyce Stockton Other [facility] Other 03-27-2023 14:55-0400 Diastolic blood pressure 87 mm[Hg] Joyce Stockton Other [facility] Other 03-27-2023 14:55-0400 Respiratory rate 18 /min Joyce Stockton Other [facility] Other 03-27-2023 14:55-0400 SaO2% (BldA) [Mass fraction] 100 % Joyce Stockton Other [facility] Other 03-27-2023 14:55-0400 Systolic blood pressure 144 mm[Hg] Joyce Stockton Other [facility] Other Encounters Encounter Date Encounter Type Care Provider Facility Start: 05-04-2024 Patient encounter status [facility] Start: 05-04-2024 End: 05-04-2024 ambulatory [facility] Work Phone: Start: 05-04-2024 End: 05-04-2024 Encounter for general adult medical examination without abnormal findings [facility] Start: 05-04-2024 End: 05-04-2024 Patient encounter procedure [facility] Work Phone: Start: 09-30-2023 End: 01-15-2024 ambulatory Hoda Maynard Other [facility] Other Start: 09-30-2023 Office outpatient vi sit 15 minutes Hoda Aleyda [facility] Start: 04-03-2023 End: 04-03-2023 ambulatory Hoda Aleyda Other [facility] Other Start: 04-03-2023 Office outpatient ne w 20 minutes Hoda Aleyda [facility] Start: 04-03-2023 Telephone encounter Hoda Anastasiya [facility] Start: 03-27-2023 End: 03-27-2023 ambulatory Joyce Stockton Other [facility] Other Start: 03-27-2023 Office outpatient vi sit 15 minutes Joyce Stockton [facility] Start: 11-01-2022 End: 11-02-2022 [facility] Start: 11-01-2022 Encounter for genera l adult medical examination without abnormal findings [facility] Start: 11-01-2022 End: 11-01-2022 Patient encounter procedure Keya Blackmon MD Work Phone: [email or web address] Start: 11-01-2022 End: 11-01-2022 Subsequent hospital visit by physician Keya Blackmon MD Work Phone: [email or web address] Comment on above: Annual physical exam Start: 03-07-2020 End: 03-07-2020 Subsequent hospital visit by physician Keya Blackmon [facility] Start: 09-20-2017 End: 09-20-2017 Ambulatory LOBITO DODGE [facility] Start: 06-10-2017 End: 06-13-2017 Evaluation and management [facility] Start: 05-28-2017 End: 05-29-2017 Ambulatory LOBITO VITALY DODGE [facility] Start: 04-16-2017 End: 04-16-2017 Ambulatory IRAJ F MARCK CHANDRA [facility] Procedures Date Procedure Procedure Detail Performing Clinician Start: 11-01-[address] gtt 3 specimens Keya Blackmon MD Work Phone: Start: 11-01-2022 Lipid panel Keya montiel MD Work Phone: Start: 11-01-2022 PATIENT FASTING? Keya Blackmon MD Work Phone: Start: 09-20-2017 HCG, SERUM, QUALITATIVE IRAJ MARCK CHANDRA Start: 06-13-2017 PULSE OXIMETRY, CONTINUOUS IRAJ MARCK CHANDRA Start: 06-13-2017 PULSE OXIMETRY, CONTINUOUS IRAJ MARCK CHANDRA Start: 06-13-2017 PULSE OXIMETRY, CONTINUOUS IARJ MARCK CHANDRA Start: 06-13-2017 DISCHARGE PATIENT AJIT N MARCK CHANDRA Start: 06-13-2017 INITIATE OXYGEN THER APY PROTOCOL IRAJ MARCK CHANDRA Start: 06-13-2017 PULSE OXIMETRY, CONTINUOUS IRAJ MARCK CHANDRA Start: 06-13-2017 PULSE OXIMETRY, CONTINUOUS IRAJ MARCK CHANDRA Start: 06-13-2017 PULSE OXIMETRY, CONTINUOUS IRAJ MARCK CHANDRA Start: 06-12-2017 PULSE OXIMETRY, CONTINUOUS IRAJ MARCK CHANDRA Start: 06-12-2017 PULSE OXIMETRY, CONTINUOUS IRAJ MARCK CHANDRA Start: 06-12-2017 PULSE OXIMETRY, CONTINUOUS IRAJ MARCK CHANDRA Start: 06-12-2017 INITIATE OXYGEN THER APY PROTOCOL IRAJ MARCK CHANDRA Start: 06-12-2017 PULSE OXIMETRY, CONTINUOUS IRAJ MARCK CHANDRA Start: 06-12-2017 PULSE OXIMETRY, CONTINUOUS IRAJ MARCK CHANDRA Start: 06-12-2017 PULSE OXIMETRY, CONTINUOUS IRAJ MARCK CHANDRA Start: 06-11-2017 PULSE OXIMETRY, CONTINUOUS IRAJ MARCK CHANDRA Start: 06-11-2017 PULSE OXIMETRY, CONTINUOUS IRAJ MARCK CHANDRA Start: 06-11-2017 SURGICAL PATHOLOGY NICOLE EN MARCK CHANDRA Start: 06-11-2017 PULSE OXIMETRY, CONTINUOUS IRAJ MARCK CHANDRA Start: 06-11-2017 INITIATE OXYGEN THER APY PROTOCOL IRAJ MARCK CHANDRA Start: 06-11-2017 PULSE OXIMETRY, CONTINUOUS IRAJ MARCK CHANDRA Start: 06-11-2017 PULSE OXIMETRY, CONTINUOUS IRAJ MARCK CHANDRA Start: 06-11-2017 ADVANCE DIET SHEKHARE RATED (NURSING COMMUNICATION) IRAJ MARCK CHANDRA Start: 06-11-2017 AMBULATE PATIENT IRAJ MARCK CHANDRA Start: 06-11-2017 ASSESS IRAJ DOT Y CHADNRA Start: 06-11-2017 DIET GENERAL IRAJ DOT Y CHANDRA Start: 06-11-2017 ICE TO AFFECTED AREA CA RMEN MARCK CHANDRA Start: 06-11-2017 RHOGAM AJIT N MARCK CHANDRA Start: 06-11-2017 SALINE LOCK IV IRAJ D OTY CHANDRA Start: 06-11-2017 STRAIGHT CATH IRAJ DO TY CHANDRA Start: 06-11-2017 FULL CODE IRAJ DOT Y CHANDRA Start: 06-11-2017 NOTIFY PHYSICIAN (SPECIFY) IRAJ MARCK CHANDRA Start: 06-11-2017 VITAL SIGNS IRAJ DOT Y CHANDRA Start: 06-11-2017 NURSING COMMUNICATION C MELISSA MARCK CHANDRA Start: 06-11-2017 SPECIMEN TO PATHOLOGY C MELISSA MARCK CHANDRA Start: 06-11-2017 PULSE OXIMETRY, CONTINUOUS IRAJ MARCK CHANDRA Start: 06-11-2017 URINALYSIS WITH MICROSCOPIC IRAJ MARCK CHANDRA Start: 06-10-2017 Continuous pulse oximetry IRAJ MARCK CHANDRA Start: 06-10-2017 INITIATE OXYGEN THER APY PROTOCOL IRAJ MARCK CHANDRA Start: 06-10-2017 MAINTAIN IV ACCESS NICOLE EN MARCK CHANDRA Start: 06-10-2017 NOTIFY PHYSICIAN (SPECIFY) IRAJ MARCK CHANDRA Start: 06-10-2017 NURSING COMMUNICATION C MELISSA MARCK CHANDRA Start: 06-10-2017 PULSE OXIMETRY, CONTINUOUS IRAJ MARCK CHANDRA Start: 06-10-2017 VITAL SIGNS IRAJ DOT Y CHANDRA Start: 06-10-2017 CBC WITH AUTO DIFFERENTIAL IRAJ MARCK CHANDRA Start: 06-10-2017 COMPREHENSIVE METABO LIC PANEL IRAJ MARCK CHANDRA Start: 06-10-2017 LACTATE DEHYDROGENASE C MELISSA MARCK CHANDRA Start: 06-10-2017 SPECIMEN REJECTION NICOLE SPANGLERTRONG Start: 06-10-2017 URIC ACID IRAJ Rodriguez CHANDRA Start: 06-10-2017 URINE DRUG SCREEN AJIT SPANGLERTRONG Start: 06-10-2017 PATIENT STATUS (DIRECT) IRAJ SPANGLERTRONG Start: 06-10-2017 ICE TO AFFECTED AREA CA NOE SPANGLERTRONG Start: 06-10-2017 INTAKE AND OUTPUT AJIT SPANGLERTRONG Start: 06-10-2017 MAINTAIN IV ACCESS NICOLE SPANGLERTRONG Start: 06-10-2017 MISCELLANEOUS NURSIN G CARE ORDER (SPECIFY) IRAJ SPANGLERTRONG Start: 06-10-2017 NURSING COMMUNICATION C MELISSA SPANGLERTRONG Start: 06-10-2017 POSITIONING INSTRUCTION IRAJ SPANGLERTRONG Start: 06-10-2017 SAMPLE POSSIBLE BLOO D BANK TESTING IRAJ SPANGLERTRONG Start: 06-10-2017 CONTRACTION -MONITORING IRAJ SPANGLERTRONG Start: 06-10-2017 MONITOR HEART TONES IRAJ SPANGLERTRONG Start: 06-10-2017 NOTIFY PHYSICIAN (SPECIFY) IRAJ SPANGLERTRONG Start: 06-10-2017 UP IN CHAIR IARJ SPANGLERTRONG Start: 06-10-2017 VERIFY INFORMED CONSENT IRAJ SPANGLERTRONG Start: 06-10-2017 VITAL SIGNS IRAJ Rodriguez CHANDRA Start: 05-28-2017 VAGINITIS DNA PROBE LORETO SPANGLERTRONG Start: 05-28-2017 STREP B SCREEN, VAGI NAL / RECTAL IRAJ SPANGLERTRONG Start: 04-16-2017 DISCHARGE PATIENT AJIT SPANGLERTRONG Start: 04-16-2017 CONTRACTION -MONITORING IRAJ MARCK CHANDRA Start: 04-16-2017 MONITORING IRAJ MARCK CHANDRA Start: 04-16-2017 PATIENT STATUS (DIRECT) IRAJ SPANGLERTRONG Start: 11-19-2016 Microscopic observat ion [Identifier] in Cervix by Cyto stain Keya Blackmon MD Work Phone: Plan of Treatment Date Care Activity Detail Author Start: 05-14-2027 DTaP/Tdap/Td vaccine (2 - Td or Tdap) DTaP/Tdap/Td vaccine (2 - Td or Tdap) [facility] Start: 05-14-2027 DTaP/Tdap/Td vaccine (2 - Td) DTaP/Tdap/Td vaccine (2 - Td) [place] Start: 11-01-2025 Diabetes screen Diabetes screen [facility] Start: 04-16-2022 Influenza vaccination Flu vaccine (# 1) [facility] Start: 11-17-2021 Depression Screen Depression Screen [facility] Start: 05-17-2020 Influenza vaccination Flu vacc ine (Season Ended) [place] Start: 11-20-2019 Screening for malign ant neoplasm of cervix [facility] Start: 06-10-2018 Creatinine measurement Creatinine mo nitoring [place] Start: 06-10-2018 Potassium monitoring Potassium monit [place], [place] Start: 2015 Screening for malign ant neoplasm of cervix HPV (without or with Pap) [facility] Start: 2003 Hepatitis C screening Hepatitis C sc reen [facility] Start: 1986 Varicella vaccine (1 of 2 - 2-dose childhood series) Varicella vaccine (1 of 2 - 2-dose childhood series) [facility] Start: 03-28-1986 COVID-19 Vaccine (#1) COVID-19 Vacci ne (#1) [facility] Comprehensive metabo lic 2000 panel - Serum or Plasma [facility] Immunizations Immunization Date Immunization Notes Care Provider Gary rodríguez 07-15-2018 influenza virus vacc ine, unspecified formulation Keyadavid Blackmon [facility] 08-12-2017 Influenza Vaccine, unspecified formulation [place], [place] 05-14-2017 tetanus toxoid, redu michelle diphtheria toxoid, and acellular pertussis vaccine, adsorbed [place], [place] Payers Date Payer Category Payer Unknown [id number] 2016 Unknown [id number] 2014 Unknown xxxxxxxxxxxx [id number] 1985 Unknown [id number] Social History Date Type Detail Facility Start: 03-03-2020 End: 05-04-2024 Tobacco smoking status NHIS Never smoker [place] Start: 03-03-2020 End: 11-01-2022 Alcohol intake Current non-drinker of alcohol (finding) [place] Start: 03-03-2020 End: 11-01-2022 History SDOH Financial 5 [place] Start: 03-03-2020 End: 11-01-2022 History SDOH Food Worry 1 [place] Start: 1985 Sex Assigned At Not on file [place] Start: 11-01-2022 Tobacco use and exposure Smokeless tobacco non-user [employer] Phone: Start: 11-01-2022 History SDOH Transpo rt Non-Med 2 [employer] Phone: Sex Assigned At Sex Assigned At [facility] Other Start: 1985 Sex Assigned At Female F [facility] Evaluation note 09-30-2023 Note Date & Type Note Facility 09-30-2023 Evaluation note Encounter Date Diagnosis Assessment Notes Sep, Dizziness (ICD-10 - R42) The patient was seen today for ER/Urgent Care follow-up. All available records were reviewed and discussed with the patient. All new medications prescribed were reviewed. Any additional changes are noted above. Discussed all symptoms. lab work, and EKG. Discussed further testing and would recommend that she either follow-up with a [place] Flour or lexiscan stress test to evaluate. She would like to proceed with stress test. Follow-up after stress test. Pt verbalizes understanding and agrees with plan of care. 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 Aoid face. Wash all belongings that came in contact with plant oils. May use Fels Naptha soap to cleanse the skin and my clean linens with this soap as well. May try to use Calamine lotion and OTC Zyrtec for symptom relief. Continue to monitor symptoms. Mar, Cellulitis of right upper extremity (ICD-10 - L03.113) Take antibiotic as directed, and complete full course even if symptoms are no longer present. Take ibuprofen/Tyleno l as needed for pain and discomfort. Encouraged patient to use moist warm compresses on area to help facilitate draining. Wash area with warm soapy water twice daily, and pat dry. Cover area with bandage if potential exposure to dirty environment and while working. May leave area open to air when at home. Patient instructed to monitor symptoms closely. Patient verbalized understanding and agreement with treatment plan. call office if no improvement may need to refer to dermatology. Mar, Cellulitis of left upper extremity (ICD-10 - L03.114) [facility] Other Evaluation note Note Date & Type Note Facility Evaluation note Diagnosis Annual physical exam Routine general medical examination at a health care facility documented in this encounter [facility] Work Phone: Evaluation note Note Date & Type Note Facility Evaluation note [employer] Other Evaluation note Note Date & Type Note Facility Evaluation note No Information [facility] [employer] Other Evaluation note Note Date & Type Note Facility Evaluation note Diagnosis Onset Date Screening for lipid disorders acute Screening for metabolic disorder acute Screening, deficiency anemia, iron acute Wellness examination [facility] Work Phone: History general Narrative - Reported Note Date & Type Note Facility History general Narrative - Reported Type Surgical History wisdom teeth Hospitalization History Child [facility] [employer] Other Summary Purpose Family History Relationship Condition Age at Onset Recorded Date/T francesca family member Family history of other condition Unknow n mother Diabetes mellitus Unknown Unknown Hypertension Unknown Family history of other condition Unknown Advance Directives Documents on File Type Date Recorded Patient Conversion Developer Expl anation Advance Directives and Living Will Power of Electronic Data Processing Auditor Latest Code Status on File Code Status Date Activated Date Inactivated Comments Full Code 06/11/2017 3:17 AM 06/13/2017 10:14 PM Full Code 06/10/2017 10:32 AM 06/11/2017 3:17 AM Advance Directive Response Recorded Date/ Time Advance Directives No April 27, 2024 10:41am Chief Complaint and Reason for Visit Chief Complaint wellness Reason for Visit Screening for lipid disorders Screening for metabolic disorder Screening, deficiency anemia, iron Wellness examination Additional Source Comments INFORMATION SOURCE (unrecogn ized section and content) DATE CREATED AUTHOR 03/11/2018 [facility] DATE CREATED AUTHOR AUTHOR'S ORGANIZ ATION 11/02/2022 Deb Cordova [facility] Care Teams (unrecognized sec tion and content) Director Wholesale Relationship Specialty Start Date End Date Keya Blackmon MD [address] [place] [address] PCP - General Family Medicine 03/27/13 Team Status: Active Member Role Status Dates Lucero Maria MD Primary Care Provider Active Team Status: Inactive Member Role Status Dates Hoda Maynard APRN DRIVER GUARD-C Attending Provider Act sarita Start: May 04, 2024 End: May 04, 2024 Lucero Maria MD Primary Care Provider Active S tart: May 04, 2024 End: May 04, 2024 REASON FOR VISIT (unrecogniz ed section and content) medicationPoison IvyER Junior w [facility] Goals (unrecognized section and content) Goals may be documented in a n alternate section FOR RECORDS PERTAINING TO PATIENTS WHO ARE OR HAVE BEEN ENROLLED IN A CHEMICAL DEPENDENCY/SUBSTANCEABUSE PROGRAM, SOME INFORMATION MAY BE OMITTED. This clinical summary was aggregated from multiple sources. Caution should be exercised in using it in the provision of clinical care. This summary normalizes information from multiple sources, and as a consequence, information in this document may materially change the coding, format and clinical context of patient data. In addition, data may be omitted in some cases. CLINICAL DECISIONS SHOULD BE BASED ON THE PRIMARY CLINICAL RECORDS. [facility] [employer] [facility]. provides no warranty or guarantee of the accuracy or completeness of information in this document.
[2024-05-09 08:09] LABS: Alanine Aminotransferase 22 U/L (14-59); Albumin Globulin Ratio 0.9; Albumin Level 3.3 g/dL (3.4-5.0); Alkaline Phosphatase 63 U/L (46-116); Anion Gap 11.6; Aspartate Amino Transferase 20 U/L (15-37); BUN Creatinine Ratio 12.5; Bilirubin Total 0.7 mg/dL (0.2-1.0); Calcium 9.2 mg/dL (8.5-10.1); Carbon Dioxide 26.9 mmol/L (21.0-32.0); Chloride 104 mmol/L (98-107); Cholesterol 198 mg/dL (<=200); Estimated GFR (African America >60 (>=60); Estimated GFR (Non-African Ame >60 (>=60); Globulin 3.8 g/dL; Glucose 93 mg/dL (74-106); HDL Cholesterol 67 mg/dL (40-60); Potassium 4.5 mmol/L (3.5-5.1); Sodium 138 mmol/L (136-145); Total Protein 7.1 g/dL (6.4-8.2); Triglycerides 64 mg/dL (<=150); VLDL CHOLESTEROL 12.8 mg/dL
[2024-05-09 08:36] LABS: Basophils Percent Auto 0.4 % (0.2-2.0); Eosinophils Absolute Auto 0.1 10^3/uL (0.0-0.7); Eosinophils Percent Auto 1.1 % (0.9-7.0); Hematocrit 42.2 % (36.0-48.0); Hemoglobin 14.1 g/dL (12.0-16.0); Immature Granulocytes Abs Auto 0.02 10^3/uL (0.00-0.03); Immature Granulocytes Pct Auto 0.2 % (0.0-0.5); Lymphocytes Absolute Auto 2.8 10^3/uL (1.2-3.8); Lymphocytes Percent Auto 33.8 % (20.5-60.0); Mean Corpuscular HGB Conc 33.4 g/dL (29.9-35.2); Mean Corpuscular Hemoglobin 30.3 pg (26.7-34.0); Mean Corpuscular Volume 90.8 fL (81.0-99.0); Monocytes Absolute Auto 0.6 10^3/uL (0.3-0.8); Monocytes Percent Auto 7.6 % (1.7-12.0); Neutrophils Absolute Auto 4.6 10^3/uL (1.4-6.5); Neutrophils Percent Auto 56.9 % (43.0-75.0); Platelet Count 216 10^3/uL (150-450); Red Blood Count 4.65 10^6/uL (4.20-5.40); Red Cell Distribution Width 13.7 % (11.0-15.0); White Blood Count 8.1 10^3/uL (4.0-11.0)
== END 2024-05-09 07:24 | disposition home or self-care (01) ==
PROVIDERS: PCP Nurse Practitioner Family; Visit Provider Nurse Practitioner Family
DX: Z00.00 Encounter for general adult medical examination without abnormal findings (principal); Z13.220 Encounter for screening for lipoid disorders; Z13.0 Encounter for screening for diseases of the blood and blood-forming organs and certain disorders involving the immune mechanism; Z13.228 Encounter for screening for other metabolic disorders
CPT/HCPCS: 36415; 80053; 80061; 85025

== ENCOUNTER 2025-05-08 06:47 | Outpatient (OUT) | payer BC, SELFPAY ==
--- OUTSIDE RECORDS SUMMARY | 2025-05-08 06:53 | XMS_ITS | Clinical Summary ---
Author Organization [facility] Address [address], [address] [place] [address] Care Team Providers Care Tar Distributor Operator Name Role Phone Keya Blackmon MD Primary Care Provider [phone] Allergies No known active allergies Medications Multiple Vitamins-Minera ls (THERAPEUTIC MULTIVITAMIN-[place] NERALS) tablet Take 1 tablet by mouth daily Active albuterol (PROVENTIL) (5 MG/ML) 0.5% nebulizer solutionIndicat ions:Shortness of breath,Wheezing ,Cough in adult Take 1 mL by nebulization 4 times daily as needed for Wheezing 120 each 3 1 Active Additional Information Patient not taking.Reported on 11/01/2022 Respiratory Therapy Supplies (NEBULIZER/TUBI NG/MOUTHPIECE) KITIndications: Shortness of breath,Wheezing ,Cough in adult 1 kit by Does not apply route daily as needed (cough, wheezing) 1 kit 1 Active Additional Information Patient not taking.Reported on 11/01/2022 Active Problems Patient Care Coordination No te Formatting of this note migh t be different from the original. Patient is currently enrolled in a remote COVID-19 symptom monitoring program. Start day 03/10/2020, End Date 03/25/2020 LIZY in book = 07/01/2017 [place] [facility] risk assesment form = NA testing =Declined History C/S ? = NA Gender = Circ = Ped = Breast or bottle = Epidural/natural = Keep Option Open RH factor = O Negative Rhogam? = Flu shot = already had with [facility] (27-36 wks)= GBS = negative Card - Problem Noted Date Diagnosed Date Mitral valve prolapse 04/08/2013 Overview (06/03/2017): gbs neg Resolved Problems Problem Noted Date Diagnosed Date Resolved Date Gestational hypertension 12/2020 Encounter for supervision of normal first in third trimester 11/17/2020 Immunizations Immunization Administration Dates Next Due Influenza Vaccine, unspecified formulation 08/12 Influenza Virus Vaccine 07/15/2018 TDaP, ADACEL (age 10y-64y), BOOSTRIX (age 10y+), IM, 0.5mL 05/14/2017 Family History Medical History Relation Name Comments Cancer Father colon Cancer Sister breast Relation Name Status Comments Father Alive Mother Alive Sister Alive Social History Tobacco Use Types Packs/Day Years Used Date Smoking Tobacco: Never Smokeless Tobacco: Never Tobacco Cessation:Counseling Given: Not Answered Alcohol Use Standard Drinks/Week Comments No 0 (1 standard drink = 0.6 oz pur e alcohol) Overall Financial Resource Strain (CARDIA) Answe r Date Recorded How hard is it for you to pa y for the very basics like food, housing, medical care, and heating? Not hard at all 11/01/2022 PHQ-2 Answer Date Recorded PHQ-9 Total Score 0 11/01/2022 Hunger Vital Sign Answer Date Recorded Within the past 12 months, y ou worried that your food would run out before you got the money to buy more. Never true 11/01/19 23 Within the past 12 months, t he food you bought just didn't last and you didn't have money to get more. Never true 11/01/2022 PRAPARE - Transportation Answer Date Re corded Lack of Transportation (Medical) Not on file 11/01/2022 In the past 12 months, has l ack of transportation kept you from meetings, work, or from getting things needed for daily living? No 11/01/2022 Housing Stability Vital Sign Answer Carlos e Recorded Unable to Pay for Housing in the Last Year Not o n file 11/01/2022 Number of Places Lived in the Last Year Not on f ile 11/01/2022 In the last 12 months, was t here a time when you did not have a steady place to sleep or slept in a penitentiary (including now)? No 11/01/2022 Food Insecurity Answer Date Recorded Within the past 12 months, y ou worried that your food would run out before you got the money to buy more. 1 11/01/2022 Within the past 12 months, t he food you bought just didn't last and you didn't have money to get more. 1 11/01/2022 Comments No Sex and Gender Information Value Date Recorded Sex Assigned at Not on file Legal Sex Female 9:23 AM EST Gender Identity Not on file Sexual Orientation Not on file Last Filed Vital Signs Vital Sign Reading Time Taken Comments Blood Pressure 110/70 11/01/2022 2:20 PM EST Pulse 90 11/01/2022 2:20 PM EST Temperature 36.7 C (98.1 F) 11/17/2020 11:03 AM EST Respiratory Rate 18 06/13/2017 7:50 AM EDT Oxygen Saturation 98% 11/01/2022 2:20 PM EST Inhaled Oxygen Concentration - - Weight 110.7 kg (244 lb) 11/01/2022 2:20 PM EST Height 162.6 cm (5' 4 ) 11/01/2022 2:20 PM EST Body Mass Index 41.88 11/01/2022 2:20 PM EST Plan of Treatment Health Maintenance Due Date Last Done Comments Depression Screen 1997 Varicella vaccine (1 of 2 - 13+ 2-dose series) 1998 Hepatitis C screen 2003 Hepatitis B vaccine (1 of 3 - 19+ 3-dose series) 2004 HPV (without or with Pap) 2015 Cervical cancer screen 11/20/2019 Pap smear 11/20/2019 11/19/2016, 10/22/2014 COVID-19 Vaccine (2023-2 5 season) 2024 Flu vaccine (#1) 04/16/2025 07/15/2018, 08/12/2017 DTaP/Tdap/Td vaccine (2 - Td or Tdap) 05/14/2027 05/14/2017 HIV screen Completed 11/06/2016 Diabetes screen Discontinued 11/01/2022, 11/06/2016 HPV vaccine (No Doses Required) Completed Hepatitis A vaccine Aged Out No longe r eligible based on patient's age to complete this topic Hib vaccine Aged Out No longer eligi ble based on patient's age to complete this topic Meningococcal (ACWY) vaccine Aged Out No longer eligible based on patient's age to complete this topic Meningococcal B vaccine Aged Out No l onger eligible based on patient's age to complete this topic Pneumococcal 0-49 years Vaccine Aged Out No longer eligible based on patient's age to complete this topic Polio vaccine Aged Out No longer elig ible based on patient's age to complete this topic Procedures Procedure Name Priority Date/Time Associated Diagnosis Comments GLUCOSE, FASTING Routine 11/01/2022 3:23 PM EST Annual physical exam HISTORICAL SITE GUIDE CYTOLOGY Routine 11/19/2016 12:22 PM EST HIV SCREEN Routine 11/06/2016 9:00 AM EST from Last 3 Months or Most Recently Relevant to Health Maintenance Results * Glucose, Fasting (11/01/2022 3:23 PM EST) Glucose, Fasting 97 70 - 99 mg/dL 11/01/2022 3:23 PM EST [facility] BLOOD SPECIMEN / Unknown 11/01/2022 3:23 PM EST 11/01/2022 3:25 PM EST us Keya Blackmon MD CHEMISTRY ORDERABLES Final Re sult [facility] [address] [place], [place] [address] [phone] * HISTORICAL SITE GUIDE Cytology (11/19/2016 12:22 PM EST) Cytology Report (NOTE) [id number] [facility] ANATOMIC PATHOLOGY [address] [place] [address]. [place], [place] [address] GYNECOLOGIC CYTOLOGY REPORT Patient Name: DOMI SERRANO MR#: [id number] Specimen #[id number] Source: 1: Cervical material, (ThinPrep vial, Imaging-assisted review) Clinical History High risk HPV DNA testing is requested if the diagnosis is abnormal LMP: 09/24/2016 INTERPRETATION Cervical material, (ThinPrep vial, Imaging-assisted review): Specimen Adequacy: Satisfactory for evaluation. - Endocervical/trans formation zone component present. Descriptive Diagnosis: Negative for intraepithelial lesion or malignancy. Economic Geographer: ARLENE Lainez(ASCP) Electronically Signed Out toby/11/26/2016 11/26/2016 12:00 AM EDT [facility] 11/19/2016 12:2 2 PM EST 11/21/2016 12:22 PM EST Sofi Santiago AUDIT DIRECTOR - [employer] PATHOLOGY/CYTOLOGY OR DERABLES Final Result Performing Organization Address [facility] Co de Phone Number [facility] [address] [place] [address], [facility] [phone] * HIV Screen (11/06/2016 9:00 AM EST) HIV Ag/Ab NONREACTIVE NR 11/07/2016 10:45 PM EST [facility] Comment: No laboratory evidence of HIV infection. If acute HIV infection is suspected, consider testing for HIV-1 RNA. This is an FDA approved immunoassay that detects HIV-1 and HIV-2 antibodies and HIV-1 p24 antigen to screen for infection with HIV-1 or HIV-2. Performed at [employer] [address] ([phone] 11/06/2016 9:00 AM EST 11/06/2016 6:04 PM EST us Sofi Santiago APRN - [facility] IMMUNOLOGY ORDERABLES Final Result Performing Organization Address City/[facility]/ZIP Co de Phone Number [facility] [address] [place] [address], [facility] [phone] [facility] from Last 3 Months or Most Recently Relevant to Health Maintenance Insurance [address] [place] [address] [place] [address] [place] [address] Advance Directives * Full Code (Latest Code Status on File) Date Activated Date Inactivated Comments 06/11/2017 3:17 AM 06/13/2017 10:14 PM * Full Code Date Activated Date Inactivated Comments 06/10/2017 10:32 AM 06/11/2017 3:17 AM Care Teams Tar Distributor Operator Relationship Specialty Start Date End Date Keya Blackmon MD [address] [place] [address] PCP - General Family Medicine 03/27/13
--- OUTSIDE RECORDS SUMMARY | 2025-05-08 06:53 | XMS_ITS | Encounter Summary ---
Author Organization [facility] Address [address], [address] [place] [address] Care Team Providers Care Windsmith Name Role Phone Keya Blackmon MD Primary Care Provider [phone] Encounter Details Date Type Department Care Team (Late st Contact Info) Description 06/20/2017 FollowUp Telephone Encounter [facility] Labor and Delivery [address] [place] [address] Lynda Lowry, [place] [address] Social History Tobacco Use Types Packs/Day Years Used Date Smoking Tobacco: Never Smokeless Tobacco: Never Alcohol Use Standard Drinks/Week Comments No 0 (1 standard drink = 0.6 oz pur e alcohol) Comments No Sex and Gender Information Value Date Recorded Sex Assigned at Not on file Legal Sex Female 9:23 AM EST Gender Identity Not on file Sexual Orientation Not on file documented as of this encounter Progress Notes * Lynda Lowry, RN - 06/20/2017 12:40 PM EDT Discharge Phone Call Log Patient Name: Yumiko Medina Zach OB Care Provider: No admitting provider for patient encounter. Most Recent Discharge Date: 06/13/17 Disposition of baby: (home) Call made 06/20/2017 12:40 PM [x] No answer [x] Message left [] Postcard sent [] documented in this encounter Plan of Treatment Not on file documented as of this encounter Visit Diagnoses Not on filedocumented in this encounter Additional Health Concerns Infection Onset Date Last Indicated Resolved Time COVID-19 (Rule Out) 03/08/2020 03/08/2020 03/12/20 20 1:06 AM EDT documented as of this encounter Care Teams Windsmith Relationship Specialty Start Date End Date Keya Blackmon MD [address] [place] [address] PCP - General Family Medicine 03/27/13 documented as of this encounter
--- OUTSIDE RECORDS SUMMARY | 2025-05-08 06:53 | XMS_ITS | Encounter Summary ---
Author Organization [facility] Address [address], [address] [place] [address] Care Team Providers Care Certified Nutritionist Name Role Phone Keya Blackmon MD Primary Care Provider [phone] Encounter Details Date Type Department Care Team (Late st Contact Info) Description 06/25/2017 FollowUp Telephone Encounter [facility] Labor and Delivery [address] [place] [address] Lynda Lowry, [place] [address] Social History Tobacco Use Types Packs/Day Years [...] Progress Notes * Lynda Lowry, RN - 06/25/2017 11:23 AM EDT Discharge Phone Call Log Patient Name: Yumiko Carlo Serrano OB Care Provider: No admitting provider for patient encounter. Most Recent Discharge Date: 06/13/17 Disposition of baby: (home) Call made 06/25/2017 11:23 AM [x] No answer [x] Message left [x] Postcard sent [] documented in this encounter Plan of Treatment Not on file documented as of this encounter Visit Diagnoses Not on filedocumented in this encounter Additional Health Concerns Infection Onset Date Last Indicated Resolved Time COVID-19 (Rule Out) 03/08/2020 03/08/2020 03/12/20 20 1:06 AM EDT documented as of this encounter Care Teams Certified Nutritionist Relationship Specialty Start Date End Date Keya Blackmon MD [address] [place] [address] PCP - General Family Medicine 03/27/13 documented as of this encounter
--- OUTSIDE RECORDS SUMMARY | 2025-05-08 06:53 | XMS_ITS | Encounter Summary ---
Author Organization [facility] Address [address], [address] [place] [address] Care Team Providers Care Telephone Coin Box Collector Name Role Phone Keya Blackmon MD Primary Care Provider Encounter Details Date Type Department Care Team (Late st Contact Info) Description 05/30/2021 [facility] [address] [place] [address] Keya Blackmon MD [address] [place] [address] Social History Tobacco Use Types Packs/Day Years [...] care, and heating? Not hard at all 03/03/2020 PHQ-2 Answer Date Recorded PHQ-9 Total Score 0 11/17/2020 Hunger Vital Sign Answer Date Recorded Within the past 12 months, y ou worried that your food would run out before you got the money to buy more. Never true 03/03/20 20 Within the past 12 months, t he food you bought just didn't last and you didn't have money to get more. Never true 03/03/2020 Comments No Sex and Gender Information Value Date Recorded Sex Assigned at Not on file Legal Sex Female 9:23 AM EST Gender Identity Not on file Sexual Orientation Not on file documented as of this encounter Plan of Treatment Not on file documented as of this encounter Visit Diagnoses Not on filedocumented in this encounter Care Teams Telephone Coin Box Collector Relationship Specialty Start Date End Date Keya Blackmon MD [address] [id number] PCP - General Family Medicine 03/27/13 documented as of this encounter
--- OUTSIDE RECORDS SUMMARY | 2025-05-08 06:54 | XMS_ITS | CCD ---
Author Organization [facility] Care Team Providers Care Assistant Professor Surgical Technology Name Role Phone IRAJ WHITE Unavailable Unavail able IRAJ WHITE F Unavailable Unavail able KEYA BLACKMON Unavailable Unavailable LOBITO DODGE Unavailable Unavailabl e VERHOKEYA ROMO Unavailable Unavailable IRAJ WHITE F Unavailable Unavail able IRAJ WHITE F Unavailable Unavail able KEYA BLACKMON Unavailable Unavailable LOBITO DODGE Unavailable Unavailabl e VERKEYA CARNEY Unavailable Unavailable Keya Blackmon Primary Care Provider [phone] Keya Blackmon MD Primary Care Provider KEYA BLACKMON Referring Unavailable KEYA BLACKMON Primary Care Unavailable Joyce Stockton Unavailable Hoda Maynard Unavailable [phone] Hoda Maynard APRN Primary Care Provider Hoda Maynard APRN Attending Provider [phone] Medications Current Medications Medication Drug Class(es) Dates Sig (Normalized) Sig (Original) cephalexin 500 mg oral tablet (2 sources) Cephalosporin Antibacterial Start: 04-03-2023 take 1 tablet by mouth every eight hours Cephalexin 500 MG 1 tablet Orally Three times a day for 10 days Mar, Active Multi (2 sources) Start: 05-04-2024 Multi Active PO May 04, 2024 12:00am Complies with drug therapy Start: 05-04-2024 Multi Active P O May 04, 2024 12:00am Multi Complete (4 sources) Multi Complete A ctive Multiple Vitamins-Minerals (THERAPEUTIC MULTIVITAMIN-MINERALS) tablet (2 sources) [...] Drug Class(es) Dates Sig (Normalized) Sig (Original) [id number] 200 actuat albuterol 0.09 mg/actuat metered dose [...] (1 source) Chest pain, unspecified Episodic Other nutritional; endocrine; and metabolic disorders (2 sources) Body mass index 40+ - severely obese; Translations: [Class III morbid obesity with body mass index (BMI) of 40.0 to 49.9] 05-07-2025 Chronic Other screening for suspected conditions (not mental disorders or infectious disease) (15 sources) Abnormal electrocardiogram [ECG] [EKG]; Translations: [Other [...] 11-02-2022 Cholesterol [Mass/Vol] 213 mg/dL High <200 [facility] Comment on above: Result Comment: Cholesterol Guidelines: <200 Desirable 200-240 Borderline >240 Undesirable Performed By: #### LIZZIE CARVAJAL #### [facility] [address] [place] [address] Game Show Host: Tesfaye Torres MD #### LIPR #### [facility] [employer] [address] [place] [address] Game Show Host: Serafin Collins MD Cholesterol in HDL [Mass/Vol] 73 mg/dL Normal >40 [facility] Comment on above: Result Comment: HDL Guidelines: <40 Undesirable 40-59 Borderline >59 Desirable Performed By: #### Z FAST, GLUF #### [facility] [address] [place], [place] [phone] Game Show Host: Tesfaye Torres MD #### LIPR #### [facility] [employer] [facility], [place] [phone] Game Show Host: Serafin Collins MD Cholesterol in LDL [Mass/Vol] 128 mg/dL Normal 0-130 [facility] Comment on above: Result Comment: LDL Guidelines: <100 Desirable 100-129 Near to/above Desirable 130-159 Borderline >159 Undesirable Direct (measured) LDL and calculated LDL are not interchangeable tests. Performed By: #### Delgado FAST, GLUF #### [facility] [address] [place] [address] Game Show Host: Tesfaye Torres MD #### LIPR #### [facility] [employer] [address] [place] [address] [phone] Game Show Host: Serafin Collins MD Cholesterol.total/Ch olesterol in HDL [Mass ratio] 2.9 {ratio} Normal <5 [facility] Comment on above: Performed By: #### Delgado FAST, GLUF #### [facility] [address] [place] [address] Game Show Host: Tesfaye Torres MD #### LIPR #### [facility] [employer] [facility] [place], [place] [phone] Game Show Host: Serafin Collins MD Triglyceride [Mass/Vol] 60 mg/dL Normal <150 [facility] Comment on above: Result Comment: Triglyceride Guidelines: <150 Desirable 150-199 Borderline 200-499 High >499 Very high Based on AHA Guidelines for fasting triglyceride, June 2012. Performed By: #### Z FAST, GLUF #### [facility] [address] [place] [address] Game Show Host: Tesfaye Torres MD #### LIPR #### [facility] [address] [place], [place] [phone] Game Show Host: Serafin Collins MD Glucose, Fastingon 3 Glucose [Mass/Vol] 97 mg/dL Normal 70-99 [facility] Comment on above: Performed By: #### Z FAST, GLUF #### [facility] [address] [place] [address] Game Show Host: Tesfaye Torres MD #### LIPR #### [facility] [address] [place] [address] Game Show Host: Serafin Collins MD Glucose [Mass/Vol] 97 mg/dL 70 - 99 mg/dL [facility] [employer] [facility] [employer] Lipid Panelon 11-01-2022 Cholesterol [Mass/Vol] 213 mg/dL High NINF - 200 mg/dL [facility] Comment on above: Cholesterol Guidelines: <200 Desirable 200-240 Borderline >240 Undesirable Cholesterol in HDL [Mass/Vol] 73 mg/dL 40 - PINF mg/dL [facility] [employer] Comment on above: HDL Guidelines: <40 Undesirable 40-59 Borderline >59 Desirable Cholesterol in LDL [Mass/Vol] 128 mg/dL 0 - 130 mg/dL [facility] [employer] Comment on above: LDL Guidelines: <100 Desirable 100-129 Near to/above Desirable 130-159 Borderline >159 Undesirable Direct (measured) LDL and calculated LDL are not interchangeable tests. Cholesterol.total/Ch olesterol in HDL [Mass ratio] 2.9 {ratio} NINF - 5 [facility] [employer] Interpretation and review of laboratory results Abnormal [facility] [employer] Triglyceride [Mass/Vol] 60 mg/dL NINF - 150 mg/dL [facility] [employer] Comment on above: Triglyceride Guidelines: <150 Desirable 150-199 Borderline 200-499 High >499 Very high Based on AHA Guidelines for fasting triglyceride, June 2012. [facility] [employer] Patient Fasting?on 3 Patient Fasting? YES [facility] Patient fasting?on 3 Patient fasting? YES Normal [facility] Comment on above: Performed By: #### Z FAST, GLUF #### [facility] [address] [place] [address] Game Show Host: Tesfaye Torres MD #### LIPR #### [facility] [place] [address] Game Show Host: Serafin Collins MD Discharge Summaryon 06-13-20 17 HIM IP Note OR Chef Under Normal [facility] Surgical Pathologyon 017 Surgical Pathology (NOTE)[id number] Y LABORATORIESCONSULTING PATHOLOGISTS CORPORATIONANATOMIC [id number] [place] [phone] Fax: SURGICAL PATHOLOGY CONSULTATIONPatient Name: [facility]UM[facility]KO [facility]ERR[facility] Rec: [id number] Number: [id number]: 06/11/2017Received: 06/11/2017Reported: 06/13/2017 13:37-- Diagnosis --PLACENTA, THIRD TRIMESTER: - NO HISTOLOGIC ABNORMALITY.Demi Collins M.D.Electronically Signed Out [facility]/06/13/2017Clinical InformationOperative Findings: PLACENTASource of Specimen1: PLACENTA (PER CONTAINER)Gross Description YUMIKO SERRANO, PLACENTA Placenta with attached membranes andumbilical cord.UMBILICAL CORD Length: 30.0 cm Diameter: 1.0 cmTrue knots: NoNumber of vessels: 3Spiraling: NormalInsertion into surface: Paracentral, 5.2 cm from the nearestdisc marginMEMBRANESColor: Buena-osorio Meconium staining: No SURFACEColor: Saunders-blue and well [...] Not increasedOther: Few microcalcifications; intervillous fibrindeposition Normal [facility] Urinalysis w/ Microon 2016 ----- Normal [facility] Comment on above: Performed By: #### U AMIC ####[address] [place] [address] Acetaminophen mass conc TRACE Abnormal NEG [facility] Comment on above: Performed By: #### U AMIC ####[address] [place] [address] Bilirubin (direct) Negative Normal NEG [facility] Comment on above: Performed By: #### U AMIC ####[address] [place] [address] Hemoglobin mass conc (Bld) TRACE Abnormal NEG [facility] Comment on above: Performed By: #### U AMIC ####[address] [place] [address] Mucus Strands TRACE Abnormal NONE [facility] Comment on above: Result Comment: Perf ormed at [address] [place] [address] Performed By: #### U AMIC ####[address] [place] [address] Nitrite,Ur Negative Normal NEG [facility] Comment on above: Performed By: #### U AMIC ####[address] [place] [address] Turbidity CLEAR Normal CLEAR [facility] Comment on above: Performed By: #### U AMIC ####[address] [place] [address] Urine WBC's None Normal 0-5 [facility] Comment on above: Performed By: #### U AMIC ####[address] [place] [address] Urine, color YELLOW Normal YEL [facility] Comment on above: Performed By: #### U AMIC ####[address] [place] [address] Urine, epithelial cells in sediment 0 TO 2 Normal 0-25 [facility] Comment on above: Performed By: #### U AMIC ####[address] [place] [address] Urine, erythrocytes 0 TO 2 Normal 0-2 [facility] Comment on above: Performed By: #### U AMIC ####[address] [place] [address] Urine, glucose presence Negative Normal NEG [facility] Comment on above: Performed By: #### U AMIC ####[address] [place] [address] Urine, leukocyte esterase presence Negative Normal NEG [facility] Comment on above: Performed By: #### U AMIC ####[address] [place] [address] Urine, pH 6.0 [pH] Normal 5.0-9.0 [facility] Comment on above: Performed By: #### U AMIC ####[address] [place] [address] Urine, protein presence Negative Normal NEG [facility] Comment on above: Performed By: #### U AMIC ####[address] [place] [address] Urine, specific gravity 1.010 Normal 1.010-1.020 [facility] Comment on above: Performed By: #### U AMIC ####[address] [place] [address] Urobilinogen,Ur Normal Normal NORM [facility] Comment on above: Performed By: #### U AMIC ####[address] [place] [address] Comment NOT REPORTED Normal [facility] Comment on above: Performed By: #### U AMIC ####[address] [place] [address] Epithelial, Renal NOT REPORTED Normal 0 [facility] Comment on above: Performed By: #### U AMIC ####[address] [place] [address] Other Observations NOT REPORTED Normal NREQ [facility] Comment on above: Performed By: #### U AMIC ####[address] [place] [address] Trichomonas NOT REPORTED Normal NONE [facility] Comment on above: Performed By: #### U AMIC ####[address] [place] [address] Urine, amorphous sediment presence in sediment NOT REPORTED Normal NONE [facility] Comment on above: Performed By: #### U AMIC ####[address] [place] [address] Urine, bacteria in sediment NOT REPORTED Normal [facility] Comment on above: Performed By: #### U AMIC ####[address] [place] [address] Urine, casts in sediment NOT REPORTED Normal [facility] Comment on above: Performed By: #### U AMIC ####[address] [place] [address] Urine, crystals in sediment NOT REPORTED Normal NONE [facility] Comment on above: Performed By: #### U AMIC ####[address] [place] [address] Urine, yeast presence in sediment NOT REPORTED Normal NONE [facility] Comment on above: Performed By: #### U AMIC ####[address] [place] [address] CBC with Diffon 06-10-2017 Abs. Basophil 0.00 k/uL Normal 0.0-0.2 [facility] Comment on above: Result Comment: Perf ormed at [address] [place] [address] Performed By: #### C DP ####[address] , [facility]83 Abs.Neutrophil (Seg) 11.80 k/uL High 1.8-7.7 [facility] Comment on above: Performed By: #### C DP ####[address] , [facility]83 Basophils/100 WBC Auto (Bld) 0 % Normal [facility] Comment on above: Performed By: #### C DP ####[address] [place] [address] Eosinophils 0.10 10*3/uL Normal 0.0-0.4 [facility] Comment on above: Performed By: #### C DP ####[address] [place] [address] Eosinophils/100 leukocytes 0 % Normal [facility] Comment on above: Performed By: #### C DP ####[address] , [facility]83 Erythrocyte distribution width Auto Ratio (RBC) 13.3 % Normal 12.1-15.2 [facility] Comment on above: Performed By: #### C DP ####[address] [place] [address] Erythrocytes (RBC) 4.51 10*6/uL Normal 4.0-5.2 [facility] Comment on above: Performed By: #### C DP ####[address] [place] [address] Hematocrit (HCT) 40.7 % Normal 36-46 [facility] Comment on above: Performed By: #### C DP ####[address] [place] [address] Hemoglobin mass conc (Bld) 13.6 g/dL Normal 12.0-16.0 [facility] Comment on above: Performed By: #### C DP ####[address] , [facility]83 Lymphocytes 2.20 10*3/uL Normal 1.0-4.8 [facility] Comment on above: Performed By: #### C DP ####[address] , [facility]83 Lymphocytes/100 leukocytes 15 % Normal [facility] Comment on above: Performed By: #### C DP ####[address] [place] [id number] MCH 30.2 pg Normal 26-34 [facility] Comment on above: Performed By: #### C DP ####[address] [place] [address] MCHC mass conc (RBC) 33.4 g/dL Normal 31-37 [facility] Comment on above: Performed By: #### C DP ####[address] , [facility]83 MCV 90.2 fL Normal 80-100 [facility] Comment on above: Performed By: #### C DP ####[address] , [facility]83 Monocytes 0.90 10*3/uL High 0.2-0.8 [facility] Comment on above: Performed By: #### C DP ####[address] , [facility]83 Monocytes/100 leukocytes 6 % Normal [facility] Comment on above: Performed By: #### C DP ####[address] [place] [address] Neutrophil (Seg) 79 % Normal [facility] Comment on above: Performed By: #### C DP ####[address] [place] [address] Platelet mean volume (PMV) 10.7 fL Normal 6.0-12.0 [facility] Comment on above: Performed By: #### C DP ####[address] [place] [address] Platelets 168 10*3/uL Normal 140-450 [facility] Comment on above: Performed By: #### C DP ####[address] [place] [address] WBC (Leukocytes) 15.0 10*3/uL High 3.5-11.0 [facility] Comment on above: Performed By: #### C DP ####[address] [place] [address] Auto Diff Performed NOT REPORTED Normal [facility] Comment on above: Performed By: #### C DP ####[address] [place] [address] Erythrocyte morphology NOT REPORTED Normal [facility] Comment on above: Performed By: #### C DP ####[address] [place] [address] Platelets NOT REPORTED Normal [facility] Comment on above: Performed By: #### C DP ####[address] [place] [address] WBC Morphology NOT REPORTED Normal [facility] Comment on above: Performed By: #### C DP ####[address] [place] [address] Comp Metabolic Profon 2016 Alanine aminotransferase (ALT) 16 U/L Normal 5-33 [facility] Comment on above: Performed By: #### U RI, CP, LD, REJEC ####[address] [place] [address] Aspartate aminotransferase (AST) 27 U/L Normal <32 [facility] Comment on above: Performed By: #### U RI, CP, LD, REJEC ####[address] [place] [address] Bilirubin Ql (U) <0.10 Low 0.3-1.2 [facility] Comment on above: Performed By: #### U RI, CP, LD, REJEC ####[address] [place] [address] Potassium molar conc 4.2 mmol/L Normal 3.7-5.3 [facility] Comment on above: Performed By: #### U RI, CP, LD, REJEC ####[address] [place] [address] (cont.) Normal [facility] Comment on above: Result Comment: Aver age GFR for 30-39 years old: 107 mL/min/1.73sq mChronic Kidney Disease: <60 mL/min/1.73sq mKidney failure: <15 mL/min/1.73sq meGFR calculated using average adult body mass. Additional eGFR calculator available at:http://www.Qbaka.Biomoti/multiple_crcl_2011.htm Performed By: #### U RI, CP, LD, REJEC ####[address] [place] [address] Albumin 3.3 g/dL Low 3.5-5.2 [facility] Comment on above: Performed By: #### U RI, CP, LD, REJEC ####[address] [place] [address] Albumin/Globulin Ratio 0.9 {ratio} Low 1.0-2.5 [facility] Comment on above: Performed By: #### U RI, CP, LD, REJEC ####[address] [place] [address] Alkaline Phos 89 U/L Normal 35-104 [facility] Comment on above: Performed By: #### U RI, CP, LD, REJEC ####[address] [place] [address] Anion gap 14 mmol/L Normal 9-17 [facility] Comment on above: Performed By: #### U RI, CP, LD, REJEC ####[address] [place] [address] BUN/CRE Ratio 15 Normal 9-20 [facility] Comment on above: Performed By: #### U RI, CP, LD, REJEC ####[address] [place] [address] Calcium 9.6 mg/dL Normal 8.6-10.4 [facility] Comment on above: Performed By: #### U RI, CP, LD, REJEC ####[address] [place] [address] Chloride 101 mmol/L Normal 98-107 [facility] Comment on above: Performed By: #### U RI, CP, LD, REJEC ####[address] [place] [address] CO2 19 mmol/L Low 20-31 [facility] Comment on above: Performed By: #### U RI, CP, LD, REJEC ####[address] [place] [address] Creatinine 0.68 mg/dL Normal 0.50-0.90 [facility] Comment on above: Performed By: #### U RI, CP, LD, REJEC ####[address] [place] [address] eGFR (non-black) mL/min/{1.73_m2} Normal >60 [facility] Comment on above: Performed By: #### U RI, CP, LD, REJEC ####[address] [place] [address] Glucose mass conc 85 mg/dL Normal 70-99 [facility] Comment on above: Performed By: #### U RI, CP, LD, REJEC ####[address] [place] [address] Protein 6.9 g/dL Normal 6.4-8.3 [facility] Comment on above: Performed By: #### U RI, CP, LD, REJEC ####[address] [place] [address] Sodium 134 mmol/L Low 135-144 [facility] Comment on above: Performed By: #### U RI, CP, LD, REJEC ####[address] [place] [address] Staging: Normal [facility] Comment on above: Result Comment: Stag e 1: Some kidney damage normal GFRStage 2: Mild kidney damage GFR 60-89Stage 3: Moderate kidney damage GFR 30-59Stage 4: Severe kidney damage GFR 15-29Stage 5: Severe kidney damage GFR <15ESRD - chronic treatment by dialysis or transplantPerformed at [address] [place] [address] Performed By: #### U RI, CP, LD, REJEC ####[address] [place] [address] Urea nitrogen 10 mg/dL Normal 6-20 [facility] Comment on above: Performed By: #### U RI, CP, LD, REJEC ####[address] [phone] Drug Scr, Abuse, Uron 2016 Amphetamine(s),Ur Negative Normal NEG [facility] Comment on above: Performed By: #### D AU ####[address] [place] [address] Barbiturate(s),Ur Negative Normal NEG [facility] Comment on above: Performed By: #### D AU ####[address] [place] [address] Base excess Negative Normal NEG [facility] Comment on above: Performed By: #### D AU ####[address] [place] [address] Benzodiazepine(s) Negative Normal NEG [facility] Comment on above: Performed By: #### D AU ####[address] [place] [address] Buprenorphrine, Ur Negative Normal NEG [facility] Comment on above: Result Comment: Perf ormed at [address] [place] [address] Performed By: #### D AU ####[address] [place] [address] Cannabinoid(s),Ur Negative [facility] Comment on above: Performed By: #### D AU ####[address] [place] [address] Methamphetamine, Ur Negative Normal NEG [facility] Comment on above: Performed By: #### D AU ####[address] [place] [address] Opiate(s), Ur Negative Normal [facility] Comment on above: Performed By: #### D AU ####[address] [place] [address] Oxycodone, Urine Negative Normal [facility] Comment on above: Performed By: #### D AU ####[address] [place] [address] Phencyclidine, Ur Negative Normal NEG [facility] Comment on above: Performed By: #### D AU ####[address] [place] [address] Propoxyphene,Urine Negative Normal NEG [facility] Comment on above: Performed By: #### D AU ####[address] [place] [address] Urine, methadone presence Negative Normal NEG [facility] Comment on above: Performed By: #### D AU ####[address] [place] [address] Urine, tricyclic antidepressants Negative Normal NEG [facility] Comment on above: Result Comment: Drug screen results are to be used for medical purposes only. All positive results are unconfirmed. Testing for employment or legal uses should be sent to a reference laboratory for confirmation. Performed By: #### D AU ####[address] [place] [address] Interpretive Info NOT REPORTED Normal [facility] Comment on above: Performed By: #### D AU ####[address] [place] [address] MDMA, Urine NOT REPORTED Normal NEG [facility] Comment on above: Performed By: #### D AU ####[address] [place] [address] History and Physicalon 06-10 HIM IP Note OR Chef Under Normal [facility] Lactate Dehydrogenaseon 05-18 Lactate dehydrogenase (LDH) 353 U/L High 135-214 [facility] Comment on above: Result Comment: Perf ormed at [address] [place] [address] Performed By: #### U RI, CP, LD, REJEC ####[address] [place] [address] Specimen Rejectionon 017 Reason for rejection CLOTTED Normal [facility] Comment on above: Result Comment: Perf ormed at [address] [place], [place] [id number] [phone] Performed By: #### U RI, CP, LD, REJEC ####[address] [place] [address] Source of sample BLOOD Normal [facility] Comment on above: Performed By: #### U RI, CP, LD, REJEC ####[address] [place] [address] Test ordered CDP [facility] Comment on above: Performed By: #### U RI, CP, LD, REJEC ####[address] [place] [address] ----- NOT REPORTED [facility] Comment on above: Performed By: #### U RI, CP, LD, REJEC ####[address] [place] [address] Uric Acidon 06-10-2017 Urate 5.5 mg/dL Normal 2.4-5.7 [facility] Comment on above: Result Comment: Perf ormed at [address] [place] [address] Performed By: #### U RI, CP, LD, REJEC ####[address] , [place] [id number] Rule Out Grp.B Strepon 05-31 Rule Out Grp.B Strep Specimen Descriptio n .VAGINA Performed at [address] [place], [place] [id number] [phone] Special Requests NOT REPORTEDCulture NEGATIVE FOR GROUP B STREPTOCOCCI Performed at [address] [id number] [phone] Report Status FINAL 05/31/[address] [facility] Comment on above: Performed By: #### R OGBS ####[address] [phone] [place] [address] Vaginitis DNA Probeon 2016 Vaginitis DNA Probe Specimen Description .VAGINA Performed at [address] [place] [address] [phone] Special Requests NOT REPORTEDDirect Exam NEGATIVE for Kaylene sp. NEGATIVE for Gardnerella vaginalis NEGATIVE for Trichomonas vaginalis Method of testing is a DNA probe intended for detection and identification of Kaylene species, Gardnerella vaginalis, and Trichomonas vaginalis nucleic acid in vaginal fluid specimens from patients with symptoms of vaginitis/vaginosis. Performed at [address] [address] Report Status FINAL 05/28/2017 Normal [facility] Comment on above: Performed By: #### V AGDNA ####[address] [phone] [place] [address] Vital Signs Date Time Vital Sign Value Performing Clinician Facility 05-07-2025 09:45-0400 Body height 162.56 cm Hoad Maynard APRN Work Phone: [facility] 05-07-2025 09:45-0400 Body mass index (BMI) [Ratio] 47 kg/m2 Hoda Maynard APRN Work Phone: [facility] 05-07-2025 09:45-0400 Body temperature 97.9 [degF] Hoda Maynard APRN Work Phone: [facility] 05-07-2025 09:45-0400 Body weight 124.39 kg Hoda Maynard APRN Work Phone: [facility] 05-07-2025 09:45-0400 Diastolic blood pressure 78 mm[Hg] Hoda Maynard APRN Work Phone: [facility] 05-07-2025 09:45-0400 Heart rate 96 /min Hoda Aleyda [employer] Work Phone: [facility] 05-07-2025 09:45-0400 SaO2% (BldA) [Mass fraction] 98 % Hoda Aleyda [employer] Work Phone: [facility] 05-07-2025 09:45-0400 Systolic blood pressure 122 mm[Hg] Hoda Aleyda [employer] Work Phone: [facility] 05-04-2024 15:28-0400 Body height 162.56 cm [facility] 05-04-2024 15:28-0400 Body mass index (BMI) [Ratio] 43.7 kg/m2 [facility] 05-04-2024 15:28-0400 Body weight 115.66 kg [facility] 05-04-2024 15:28-0400 Diastolic blood pressure 78 mm[Hg] [facility] 05-04-2024 15:28-0400 Heart rate 100 /min [facility] 05-04-2024 15:28-0400 SaO2% (BldA) [Mass fraction] 99 % [facility] 05-04-2024 15:28-0400 Systolic blood pressure 122 mm[Hg] [facility] 09-30-2023 09:00-0500 Body height 165.1 cm Hoda Maynard Other [facility] [employer] Other 09-30-2023 09:00-0500 Body mass index (BMI) [Ratio] 43.76 kg/m2 Hoda Maynard Other [facility] [employer] Other 09-30-2023 09:00-0500 Body weight 119.3 kg Hoda Maynard Other [employer] Other 09-30-2023 09:00-0500 Diastolic blood pressure 72 mm[Hg] Hoda Barbosaelliottpedritojason Other [employer] Other 09-30-2023 09:00-0500 SaO2% (BldA) [Mass fraction] 100 % Hoda Maynard Other [employer] Other 09-30-2023 09:00-0500 Systolic blood pressure 140 mm[Hg] Hoda Collinspedritojason Other [employer] Other 04-03-2023 08:30-0400 Body height 165.1 cm Hoda Barbosaelliottpedritojason Other [employer] Other 04-03-2023 08:30-0400 Body mass index (BMI) [Ratio] 42.76 kg/m2 Hoda Barbosaelliottrenaldo Other [employer] Other 04-03-2023 08:30-0400 Body weight 116.58 kg Hoda Maynard Other [employer] Other 04-03-2023 08:30-0400 Diastolic blood pressure 70 mm[Hg] Hoda Aleyda Other [employer] Other 04-03-2023 08:30-0400 Systolic blood pressure 138 mm[Hg] Hoda Collinspedritojason Other [employer] Other 03-27-2023 14:55-0400 Body height 165.1 cm Joyce Stockton Other [employer] Other 03-27-2023 14:55-0400 Body mass index (BMI) [Ratio] 42.46 kg/m2 Joyce Stockton Other [employer] Other 03-27-2023 14:55-0400 Body temperature 98.2 [degF] Joyce Stockton Other [employer] Other 03-27-2023 14:55-0400 Body weight 115.76 kg Joyce Stockton Other [employer] Other 03-27-2023 14:55-0400 Diastolic blood pressure 87 mm[Hg] Joyce Stockton Other [employer] Other 03-27-2023 14:55-0400 Respiratory rate 18 /min Joyce Stockton Other [employer] Other 03-27-2023 14:55-0400 SaO2% (BldA) [Mass fraction] 100 % Joyce Stockton Other [employer] Other 03-27-2023 14:55-0400 Systolic blood pressure 144 mm[Hg] Joyce Stockton Other [employer] Other Encounters Encounter Date Encounter Type Care Provider Facility Start: 05-07-2025 End: 05-07-2025 ambulatory Hoda Maynard APRN Work Phone: [facility] Work Phone: Start: 05-07-2025 End: 05-07-2025 Patient encounter procedure Hoda Maynard APRN [facility] Work Phone: Start: 05-07-2025 End: 05-07-2025 Patient encounter status Hoda Maynard APRN [facility] Start: 05-04-[address] [facility] Start: 05-04-2024 End: 05-04-2024 ambulatory [facility] Work Phone: Start: 05-04-2024 End: 05-04-2024 Encounter for general adult medical examination without abnormal findings [facility] Start: 05-04-2024 End: 05-04-2024 Patient encounter procedure [facility] Physician [facility] Work Phone: Start: 09-30-2023 End: 09-30-2023 ambulatory Hoda Maynard Other [employer] Other Start: 09-30-2023 Office outpatient vi sit 15 minutes Hoda Maynard [facility] Start: 04-03-2023 End: 04-03-2023 ambulatory Hoda Maynard Other [employer] Other Start: 04-03-2023 Office outpatient ne w 20 minutes Hoda Maynard [facility] Start: 04-03-2023 Telephone encounter Hoda [facility] Start: 03-27-2023 End: 03-27-2023 ambulatory Joyce Stockton Other [employer] Other Start: 03-27-2023 Office outpatient vi sit 15 minutes Joyce Stockton [facility] Start: 11-01-2022 End: 11-02-2022 [facility] Start: 11-01-2022 Encounter for genera l adult medical examination without abnormal findings [facility] Start: 11-01-2022 End: 11-01-2022 Patient encounter procedure Keya Blackmon MD Work Phone: [email or web address] Start: 11-01-2022 End: 11-01-2022 Subsequent hospital visit by physician Keya Blackmon MD Work Phone: [email or web address] Comment on above: Annual physical exam Start: 03-07-2020 End: 03-07-2020 Subsequent hospital visit by physician Keya Blackmon [facility] Start: 09-20-2017 End: 09-20-2017 Ambulatory LOBITO DODGE [facility] Start: 06-10-2017 End: 06-13-2017 Evaluation and management of inpatient IRAJ F [facility] Start: 05-28-2017 End: 05-29-2017 Ambulatory LOBITO DODGE [facility] Start: 04-16-2017 End: 04-16-[address] [facility] Procedures Date Procedure Procedure Detail Performing Clinician [...] OXIMETRY, CONTINUOUS IRAJ MARCK CHANDRA Start: 06-13-2017 DISCHARGE PATIENT AJIT [...] IRAJ MARCK CHANDRA Start: 06-11-2017 ADVANCE DIET TOLE RATED (NURSING COMMUNICATION) IRAJ MARCK CHANDRA Start: 06-11-2017 AMBULATE PATIENT IRAJ MARCK CHANDRA Start: 06-11-2017 ASSESS IRAJ DOT Y CHANDRA Start: 06-11-2017 DIET GENERAL IRAJ DOT Y [...] CHANDRA Start: 06-10-2017 NURSING COMMUNICATION C MELISSA REEDY CHANDRA Start: 06-10-2017 PULSE OXIMETRY, CONTINUOUS IRAJ SPANGLERTRONG Start: 06-10-2017 VITAL SIGNS IRAJ DOT Y CHANDRA Start: 06-10-2017 CBC WITH AUTO DIFFERENTIAL IRAJ MARCK CHANDRA Start: 06-10-2017 COMPREHENSIVE METABO LIC PANEL IRAJ ACHARYA CHANDRA Start: 06-10-2017 LACTATE DEHYDROGENASE C MELISSA MARCK CHANDRA Start: 06-10-2017 SPECIMEN REJECTION NICOLE EN MARCK CHANDRA Start: 06-10-2017 URIC ACID IRAJ DOT Y CHANDRA Start: 06-10-2017 URINE DRUG SCREEN AJIT N MARCK CHANDRA Start: 06-10-2017 PATIENT STATUS (DIRECT) IRAJ ACHARYA CHANDRA Start: 06-10-2017 ICE TO AFFECTED AREA CA NOE REEDY CHANDRA Start: 06-10-2017 INTAKE AND OUTPUT AJIT N MARCK CHANDRA Start: 06-10-2017 MAINTAIN IV ACCESS NICOLE EN MARCK CHANDRA Start: 06-10-2017 MISCELLANEOUS NURSIN G CARE ORDER (SPECIFY) IRAJ ACHARYA CHANDRA Start: 06-10-2017 NURSING COMMUNICATION C MELISSA ACHARYA CHANDRA Start: 06-10-2017 POSITIONING INSTRUCTION IRAJ SPANGLERTRONG Start: 06-10-2017 SAMPLE POSSIBLE BLOO D BANK TESTING IRAJ SPANGLERTRONG Start: 06-10-2017 CONTRACTION -MONITORING IRAJ MARCK CHANDRA Start: 06-10-2017 MONITOR HEART TONES IRAJ SPANGLERTRONG Start: 06-10-2017 NOTIFY PHYSICIAN (SPECIFY) IRAJ ACHARYA CHANDRA Start: 06-10-2017 UP IN CHAIR IRAJ Rodriguez CHANDRA Start: 06-10-2017 VERIFY INFORMED CONSENT IRAJ MARCK CHANDRA Start: 06-10-2017 VITAL SIGNS IRAJ DOT Y CHANDRA Start: 05-28-2017 VAGINITIS DNA PROBE CAR FEI MARCK CHANDRA Start: 05-28-2017 STREP B SCREEN, VAGI NAL / RECTAL IRAJ MARCK CHANDRA Start: 04-16-2017 DISCHARGE PATIENT AJIT N MARCK CHANDRA Start: 04-16-2017 CONTRACTION -MONITORING IRAJ MARCK CHANDRA Start: 04-16-2017 MONITORING IRAJ CHANDRA Start: 04-16-2017 PATIENT STATUS (DIRECT) IRAJ CHANDRA Start: 11-19-2016 Microscopic observat ion [Identifier] in Cervix by Cyto stain Keya Blackmon MD Work Phone: Plan of Treatment Date Care Activity Detail Author Start: 05-14-2027 DTaP/Tdap/Td vaccine (2 - Td or Tdap) DTaP/Tdap/Td vaccine (2 - Td or Tdap) [facility] Start: 05-14-2027 DTaP/Tdap/Td vaccine (2 - Td) DTaP/Tdap/Td vaccine (2 - Td) [place], [place] Start: 11-01-2025 Diabetes screen Diabetes screen [facility] Start: 04-16-2022 Influenza vaccination Flu vaccine (# 1) [facility] Start: 11-17-2021 Depression Screen Depression Screen [facility] Start: 05-17-2020 Influenza vaccination Flu vacc ine (Season Ended) [place], [place] Start: 11-20-2019 Screening for malign ant neoplasm of cervix [facility] Start: 06-10-2018 Creatinine measurement Creatinine mo [place], [place] Start: 06-10-2018 Potassium monitoring Potassium monit [place], [place] Start: 2015 Screening for malign ant neoplasm of cervix HPV (without or with Pap) [facility] Start: 2003 Hepatitis C screening Hepatitis C sc reen [facility] Start: 1986 Varicella vaccine (1 of 2 - 2-dose childhood series) Varicella vaccine (1 of 2 - 2-dose childhood series) [facility] Start: 03-28-1986 COVID-19 Vaccine (#1) COVID-19 Vacci ne (#1) [facility] Comprehensive metabo lic 1999 panel - Serum or Plasma [facility] Comprehensive metabo lic 1999 panel - Serum or Plasma [facility] Immunizations Immunization Date Immunization Notes Care Provider Fa cility 07-15-2018 influenza virus vacc ine, unspecified formulation Keya PETTIT [employer] [facility] 08-12-2017 Influenza Vaccine, unspecified formulation Keya [place], [place] 05-14-2017 tetanus toxoid, redu michelle diphtheria toxoid, and acellular pertussis vaccine, adsorbed [place], [place] Payers Date Payer Category Payer Unknown [id number] 2016 Unknown [id number] 2014 Unknown [id number] 1985 [id number] Unknown Laura COBB/CHANO [id number] Social History Date Type Detail Facility Start: 03-03-2020 End: 05-04-2024 Tobacco smoking status NHIS Never smoker [place] Start: 03-03-2020 End: 11-01-2022 Alcohol intake Current non-drinker of alcohol (finding) [place] Start: 03-03-2020 End: 11-01-2022 History SDOH Financial 5 [place] Start: 03-03-2020 End: 11-01-2022 History SDOH Food Worry 1 [place], [place] Start: 1985 Sex Assigned At Not on file [place] Start: 11-01-2022 Tobacco use and exposure Smokeless tobacco non-user [employer] [facility] [employer] Phone: Start: 11-01-2022 History SDOH Transport Non-Med 2 [employer] Phone: Sex Assigned At Sex Assigned At [employer] Other Start: 1985 [address] Female [facility] Sex Female (finding) [facility] NEGATED: Highlighted row N 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 She would like to proceed with stress test. Follow-up after stress test. Pt verbalizes understanding and agrees with plan of care. Sep, Abnormal EKG (ICD-10 - R94.31) Sep, ST segment depression (ICD-10 - R94.31) Sep, Chest pain, unspecified type (ICD-10 - R07.9) Sep, Elevated troponin (ICD-10 - R79.89) [employer] Other Evaluation note 04-03-2023 Note Date & [...] of left upper extremity (ICD-10 - L03.114) [employer] Other Evaluation note Note Date & Type Note Facility Evaluation note Diagnosis Annual physical exam Routine general medical examination at a health care facility documented in this encounter HODAN LUCERO [facility] Work Phone: Evaluation note Note Date & Type Note Facility Evaluation note [facility]ly [facility] [employer] Other Evaluation note Note Date & Type Note Facility Evaluation note No Information [facility] [employer] Other Evaluation note Note Date & Type Note Facility Evaluation note Diagnosis Onset Date Screening for lipid disorders acute Screening for metabolic disorder acute Screening, deficiency anemia, iron acute Wellness examination acute [facility] Work Phone: Evaluation note Note Date & Type Note Facility Evaluation note Diagnosis Onset Date Resolution Obesity, Class III, BMI 40-49.9 (morbid obesity) acute May 07 9:41am Screening for lipid disorders acute May 07 9:41am Screening for metabolic disorder acute May 07 9:41am Screening, deficiency anemia, iron acute May 07 9:41am Wellness examination acute 2024 9:41am [facility] Work Phone: History general Narrative - Reported Note Date & Type Note Facility History general Narrative - Reported Type Surgical History wisdom teeth Hospitalization History Child [employer] Other Reason for referral (narrative) Note Date & Type Note Facility Reason for referral (narrative) No reason for referral information available [facility] Work Phone: Summary Purpose Family History Relationship Condition Age at Onset Recorded Date/T francesca family member Family history of other condition Unknow n mother Diabetes mellitus Unknown Unknown Hypertension Unknown Family history of other condition Unknown Advance Directives Documents on File Type Date Recorded 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 Advance Directives and Living Will 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 Latest Code Status on File Code Status [...] disorder Screening, deficiency anemia, iron Wellness examination Chief Complaint Admit Date Wellness May 07, 2025 9: 41am Reason for Visit Admit Date Obesity, Class III, BMI 40-49.9 (morbid obesity) May 07, 2025 9:41am Screening for lipid disorders April 9:41am Screening for metabolic disorder May 07, 2025 9:41am Screening, deficiency anemia, iron Augus t 2024 9:41am Wellness examination May 07, 2025 9 :41am Additional Source Comments INFORMATION SOURCE (unrecogn ized section and content) DATE CREATED AUTHOR 03/11/2018 [facility] DATE CREATED AUTHOR AUTHOR'S ORGANIZ ATION 11/02/2022 [facility] Care Teams (unrecognized sec tion and content) Assistant Professor Surgical Technology Relationship Specialty Start Date End Date Keya Blackmon MD [address] [place] [address] PCP - General Family Medicine 03/27/13 Team Status: Active Member Role Status Dates Lucero Maria MD Primary Care Provider Active Team Status: Inactive Member Role Status Dates Hoda Maynard APRN [employer] Attending Provider Act sarita Start: May 04, 2024 End: May 04, 2024 Lucero Maria MD Primary Care Provider Active S tart: May 04, 2024 End: May 04, 2024 Team Status: Active Member Role Status Dates Hoda Maynard APRN [employer] Primary Care Provider Active Team Status: Inactive Member Role Status Dates BECKY Euceda Primary Care Provider Active Start: May 07, 2025 End: May 07, 2025 Hoda Maynard APRN [employer] Attending Provider Act sarita Start: May 07, 2025 End: May 07, 2025 REASON FOR VISIT (unrecogniz ed section and content) medicationPoison Madhav Pacheco w [facility] Goals (unrecognized section and content) [...] BE BASED ON THE PRIMARY CLINICAL RECORDS. [facility]. provides no warranty or guarantee of the accuracy or completeness of information in this document.
[2025-05-08 07:22] LABS: Hematocrit 43.4 % (36.0-48.0); Hemoglobin 14.9 g/dL (12.0-16.0); Immature Granulocytes Abs Auto 0.03 10^3/uL (0.00-0.03); Immature Granulocytes Pct Auto 0.3 % (0.0-0.5); Lymphocytes Absolute Auto 3.1 10^3/uL (1.2-3.8); Mean Corpuscular HGB Conc 34.3 g/dL (29.9-35.2); Mean Corpuscular Hemoglobin 31.0 pg (26.7-34.0); Mean Corpuscular Volume 90.4 fL (81.0-99.0); Platelet Count 237 10^3/uL (150-450); Red Blood Count 4.80 10^6/uL (4.20-5.40); White Blood Count 10.1 10^3/uL (4.0-11.0)
[2025-05-08 07:37] LABS: Alanine Aminotransferase 23 U/L (14-59); Albumin Globulin Ratio 0.8; Albumin Level 3.6 g/dL (3.4-5.0); Alkaline Phosphatase 71 U/L (46-116); Anion Gap 11.5; Aspartate Amino Transferase 18 U/L (15-37); Blood Urea Nitrogen 10.0 mg/dL (7.0-18.0); Calcium 9.6 mg/dL (8.5-10.1); Carbon Dioxide 28.3 mmol/L (21.0-32.0); Chloride 103 mmol/L (98-107); Cholesterol 199 mg/dL (<=200); Estimated GFR (African America >60 (>=60 mL/min/1.73m^2); Estimated GFR (Non-African Ame >60 (>=60 mL/min/1.73m^2); Globulin 4.4 g/dL; Glucose 91 mg/dL (74-106); HDL Cholesterol 60 mg/dL (40-60); Potassium 4.8 mmol/L (3.5-5.1); Sodium 138 mmol/L (136-145); Total Protein 8.0 g/dL (6.4-8.2); Triglycerides 89 mg/dL (<=150); VLDL CHOLESTEROL 17.8 mg/dL
== END 2025-05-08 06:48 | disposition home or self-care (01) ==
PROVIDERS: PCP Nurse Practitioner Family; Visit Provider Nurse Practitioner Family
DX: Z00.00 Encounter for general adult medical examination without abnormal findings (principal); Z13.220 Encounter for screening for lipoid disorders; Z13.228 Encounter for screening for other metabolic disorders; Z13.0 Encounter for screening for diseases of the blood and blood-forming organs and certain disorders involving the immune mechanism
CPT/HCPCS: 36415; 80053; 80061; 85025